=== PATIENT | female | born 1945 | race Caucasian/White ===

== ENCOUNTER 2020-01-20 20:17 | Inpatient (IN) ==
[2020-01-20] MEDS ORDERED: ZALEPLON 5 MG CAPSULE PO PRN (21:31)
[2020-01-20] MEDS ORDERED: diphenhydrAMINE CAP 25 MG CAPSULE PO PRN (21:31)
[2020-01-20] MEDS ORDERED: DEXTROSE 50% 25 GM/50 ML VIAL IV PRN (21:31)
[2020-01-20] MEDS ORDERED: guaiFENesin/DM ER 600-30 MG TABLET PO PRN (21:31)
[2020-01-20] MEDS ORDERED: GLUCAGON 1 MG VIAL IM PRN (21:31)
[2020-01-20] MEDS ORDERED: hydrALAZINE 20 MG/1 ML VIAL IV PRN (21:31)
[2020-01-20] MEDS ORDERED: NICOTINE 21 MG/24 HR PATCH TRANSDERM PRN (21:31)
[2020-01-20 21:32] LABS: Basophils % 0.2 % (0.0-0.8); Hematocrit 37.1 VOL% (35.7-47.0); Hemoglobin 11.9 GM/DL (12.0-16.0); Immature Granulocytes % 0.2 %; Immature Granulocytes Absolute 0.01 #; Lymphocytes # 1.8 10*3/uL (1.4-4.0); Lymphocytes % 42.7 % (21.3-54.2); Mean Corpuscular HGB Conc 32.1 GM/DL (32-36); Mean Corpuscular Volume 101.6 FL (87-102); Monocytes % 11.5 % (1.7-12.7); Neutrophils % 45.4 % (38.7-73.9); Platelet Count 145 T/CUMM (130-400); Red Blood Count 3.65 MC/CUMM (3.8-5.5); Red Cell Distribution Width 13.9 % (9.3-17.3); White Blood Count 4.2 T/CUMM (4-12)
[2020-01-20] MEDS ORDERED: AZITHROMYCIN INJ 500 MG in SODIUM CHLORIDE 0.9% 250 ML IV STA (21:53)
[2020-01-20 21:55] LABS: Alanine Aminotransferase 12 U/L (13-56); Albumin 2.8 G/DL (3.4-5.0); Alkaline Phosphatase 74 U/L (45-117); Aspartate Amino Transferase 41 U/L (0-37); Bilirubin,Total < 0.39 MG/DL (0.2-1.0); Blood Urea Nitrogen 12 MG/DL (7-18); Calcium 8.2 MG/DL (8.5-10.1); Estimated Glom Filtration Rate 62 ML/MIN; Glucose 101 MG/DL (74-106); Osmolality,Calculated 276.5 MOS/KG (273-304); Total Protein 6.3 G/DL (6.4-8.3)
[2020-01-20] MEDS: ONDANSETRON 4 MG/2 ML VIAL IV PRN (22:28)
[2020-01-20] MEDS ORDERED: NITROGLYCERIN SL 0.4 MG TABLET SL PRN (23:44)
[2020-01-20] MEDS ORDERED: GOLIMUMAB SUBCUT SCH (23:45)
[2020-01-20] MEDS ORDERED: INFLUENZA VIRUS VACCINE 0.5 ML SYRINGE IM ONE (23:55)
[2020-01-21 08:32] LABS: Alanine Aminotransferase 22 U/L (13-56); Albumin 2.5 G/DL (3.4-5.0); Alkaline Phosphatase 67 U/L (45-117); Aspartate Amino Transferase 40 U/L (0-37); Bilirubin,Total < 0.39 MG/DL (0.2-1.0); Blood Urea Nitrogen 12 MG/DL (7-18); Calcium 8.1 MG/DL (8.5-10.1); Estimated Glom Filtration Rate 62 ML/MIN; Glucose 85 MG/DL (74-106); Osmolality,Calculated 271.8 MOS/KG (273-304); Total Protein 6.2 G/DL (6.4-8.3)
[2020-01-21] MEDS ORDERED: CYANOCOBALAMIN 1000 MCG/1 ML VIAL IM SCH (09:00)
[2020-01-21] MEDS ORDERED: ZAFIRLUKAST 20 MG PO SCH (09:00)
[2020-01-21] MEDS: GABAPENTIN 600 MG TABLET PO SCH ×2 (09:12→20:29)
[2020-01-21] MEDS: BISACODYL 5 MG TABLET PO PRN (09:12)
[2020-01-21] MEDS: CARBIDOPA/LEVODOPA 25-100 MG TABLET PO SCH ×4 (09:13→20:29)
[2020-01-21] MEDS: AZITHROMYCIN 250 MG TABLET PO SCH (09:14)
[2020-01-21] MEDS: CHOLECALCIFEROL 1,000 UNIT TABLET PO SCH (09:14)
[2020-01-21] MEDS: DOCUSATE SODIUM 100 MG CAPSULE PO SCH ×2 (09:14→20:30)
[2020-01-21] MEDS: RALOXIFENE 60 MG TABLET PO SCH (09:14)
[2020-01-21] MEDS: POTASSIUM CHLORIDE 8 MEQ CAPSULE PO SCH ×3 (09:15→20:30)
[2020-01-21] MEDS: ASCORBIC ACID 500 MG TABLET PO SCH ×2 (09:15→20:31)
[2020-01-21] MEDS: POLYETHYLENE GLYCOL POWDER 17 GM PACK PO SCH ×3 (09:15→20:30)
[2020-01-21] MEDS: FLUTICASONE/SALMETEROL 500-50 DISKUS 14 DOSE INH SCH ×2 (09:16→20:54)
[2020-01-21] MEDS: ISOSORBIDE MONONITRATE 30 MG TABLET PO SCH (09:16)
[2020-01-21] MEDS: ENOXAPARIN 40 MG/0.4 ML SYRINGE SUBCUT SCH (09:16)
[2020-01-21] MEDS: ONDANSETRON 4 MG/2 ML VIAL IV PRN (09:32)
[2020-01-21] MEDS ORDERED: MAGNESIUM CITRATE 300 ML BOTTLE PO ONE (11:00)
[2020-01-21] MEDS ORDERED: MAGNESIUM SULF RIDER 2 GM in PREMIX 1 EACH IV ONE (12:00)
[2020-01-21] MEDS ORDERED: [UNRECOGNIZED DRUG - OTHER] SL PRN (13:19)
[2020-01-21] MEDS: ACETAMINOPHEN 325 MG TABLET PO PRN ×2 (15:37→20:34)
[2020-01-21] MEDS: ZAFIRLUKAST 20 MG PO SCH ×2 (15:39→20:31)
[2020-01-21] MEDS: LACTOBACILLUS RHAMNOSUS GG CAPSULE PO SCH (20:29)
[2020-01-21] MEDS: DULoxetine 30 MG CAPSULE PO SCH (20:30)
[2020-01-22 05:28] LABS: Alanine Aminotransferase 11 U/L (13-56); Albumin 2.5 G/DL (3.4-5.0); Alkaline Phosphatase 70 U/L (45-117); Aspartate Amino Transferase 46 U/L (0-37); Bilirubin,Total < 0.39 MG/DL (0.2-1.0); Blood Urea Nitrogen 13 MG/DL (7-18); Calcium 8.2 MG/DL (8.5-10.1); Ferritin 803.7 ng/ml (8-252); Glucose 92 MG/DL (74-106); Osmolality,Calculated 280.3 MOS/KG (273-304); Total Protein 6.3 G/DL (6.4-8.3)
[2020-01-22 06:24] LABS: Estimated Glom Filtration Rate 51 ML/MIN
[2020-01-22] MEDS: POTASSIUM CHLORIDE 8 MEQ CAPSULE PO SCH ×3 (08:21→19:59)
[2020-01-22] MEDS: BISACODYL 5 MG TABLET PO PRN (08:22)
[2020-01-22] MEDS: DOCUSATE SODIUM 100 MG CAPSULE PO SCH ×2 (08:22→19:59)
[2020-01-22] MEDS: AZITHROMYCIN 250 MG TABLET PO SCH (08:22)
[2020-01-22] MEDS: RALOXIFENE 60 MG TABLET PO SCH (08:22)
[2020-01-22] MEDS: ASCORBIC ACID 500 MG TABLET PO SCH ×2 (08:23→19:59)
[2020-01-22] MEDS: GABAPENTIN 600 MG TABLET PO SCH ×2 (08:23→19:59)
[2020-01-22] MEDS: LACTOBACILLUS RHAMNOSUS GG CAPSULE PO SCH ×2 (08:23→19:59)
[2020-01-22] MEDS: ISOSORBIDE MONONITRATE 30 MG TABLET PO SCH (08:23)
[2020-01-22] MEDS: ENOXAPARIN 40 MG/0.4 ML SYRINGE SUBCUT SCH (08:24)
[2020-01-22] MEDS: POLYETHYLENE GLYCOL POWDER 17 GM PACK PO SCH ×2 (08:24→20:00)
[2020-01-22] MEDS: FLUTICASONE/SALMETEROL 500-50 DISKUS 14 DOSE INH SCH ×2 (08:24→20:30)
[2020-01-22] MEDS: CARBIDOPA/LEVODOPA 25-100 MG TABLET PO SCH ×4 (08:25→19:59)
[2020-01-22] MEDS: ZAFIRLUKAST 20 MG PO SCH ×2 (08:26→19:59)
[2020-01-22] MEDS ORDERED: guaiFENesin 200 MG/10 ML UDCUP PO PRN (08:35)
[2020-01-22] MEDS: CHOLECALCIFEROL 1,000 UNIT TABLET PO SCH (11:14)
[2020-01-22] MEDS: ACETAMINOPHEN 325 MG TABLET PO PRN (11:18)
[2020-01-22] MEDS: CHOLECALCIFEROL 5,000 UNIT TABLET PO SCH (11:19)
[2020-01-22] MEDS: DULoxetine 30 MG CAPSULE PO SCH (19:59)
[2020-01-23 05:28] LABS: Alanine Aminotransferase 13 U/L (13-56); Albumin 2.5 G/DL (3.4-5.0); Alkaline Phosphatase 63 U/L (45-117); Aspartate Amino Transferase 53 U/L (0-37); Bilirubin,Total < 0.39 MG/DL (0.2-1.0); Blood Urea Nitrogen 14 MG/DL (7-18); Calcium 8.4 MG/DL (8.5-10.1); Estimated Glom Filtration Rate 51 ML/MIN; Ferritin 1036.9 ng/ml (8-252); Glucose 115 MG/DL (74-106); Osmolality,Calculated 274.8 MOS/KG (273-304); Total Protein 6.2 G/DL (6.4-8.3)
[2020-01-23] MEDS: ENOXAPARIN 40 MG/0.4 ML SYRINGE SUBCUT SCH (08:08)
[2020-01-23] MEDS: POLYETHYLENE GLYCOL POWDER 17 GM PACK PO SCH ×2 (08:08→23:25)
[2020-01-23] MEDS: GABAPENTIN 600 MG TABLET PO SCH ×2 (08:09→23:25)
[2020-01-23] MEDS: POTASSIUM CHLORIDE 8 MEQ CAPSULE PO SCH (08:09)
[2020-01-23] MEDS: AZITHROMYCIN 250 MG TABLET PO SCH (08:09)
[2020-01-23] MEDS: POTASSIUM CHLORIDE 20 MEQ TABLET PO PRN ×3 (08:09→13:21)
[2020-01-23] MEDS: ASCORBIC ACID 500 MG TABLET PO SCH ×2 (08:10→23:25)
[2020-01-23] MEDS: CARBIDOPA/LEVODOPA 25-100 MG TABLET PO SCH ×4 (08:10→23:25)
[2020-01-23] MEDS: RALOXIFENE 60 MG TABLET PO SCH (08:10)
[2020-01-23] MEDS: CHOLECALCIFEROL 5,000 UNIT TABLET PO SCH (08:10)
[2020-01-23] MEDS: DOCUSATE SODIUM 100 MG CAPSULE PO SCH ×2 (08:10→23:25)
[2020-01-23] MEDS: ISOSORBIDE MONONITRATE 30 MG TABLET PO SCH (08:10)
[2020-01-23] MEDS: FLUTICASONE/SALMETEROL 500-50 DISKUS 14 DOSE INH SCH ×2 (08:10→23:25)
[2020-01-23] MEDS: LACTOBACILLUS RHAMNOSUS GG CAPSULE PO SCH ×2 (08:10→23:25)
[2020-01-23] MEDS: ZAFIRLUKAST 20 MG PO SCH (08:11)
[2020-01-23] MEDS ORDERED: ALBUTEROL 2.5 MG/3 ML NEB RESP TX PRN (11:11)
[2020-01-23] MEDS: ZINC GLUCONATE 50 MG TABLET PO SCH (11:50)
[2020-01-23] MEDS: DULoxetine 30 MG CAPSULE PO SCH (23:25)
[2020-01-24] MEDS: ZAFIRLUKAST 20 MG PO SCH ×3 (02:02→23:01)
[2020-01-24] MEDS: MIRABEGRON 50 MG PO SCH ×2 (02:02→23:00)
[2020-01-24 05:20] LABS: Basophils % 0.3 % (0.0-0.8); Hematocrit 35.9 VOL% (35.7-47.0); Hemoglobin 11.3 GM/DL (12.0-16.0); Immature Granulocytes % 0.5 %; Immature Granulocytes Absolute 0.02 #; Lymphocytes # 2.1 10*3/uL (1.4-4.0); Lymphocytes % 53.7 % (21.3-54.2); Mean Corpuscular HGB Conc 31.5 GM/DL (32-36); Mean Corpuscular Volume 102.9 FL (87-102); Mean Platelet Volume 11.4 FL (9.6-12.0); Monocytes % 12.1 % (1.7-12.7); Neutrophils % 33.4 % (38.7-73.9); Platelet Count 162 T/CUMM (130-400); Red Blood Count 3.49 MC/CUMM (3.8-5.5)
[2020-01-24 05:45] LABS: Band Neutrophils 3 % (0-10); Eosinophils 1 % (0-10); Hypochromasia 1+; Lymphocytes 51 % (20-55); Platelet Estimate Adequate; Segmented Neutrophils 31 % (50-85); Total Cells Counted 100
[2020-01-24 05:46] LABS: Atypical Lymphocytes Few
[2020-01-24 05:52] LABS: Albumin 2.5 G/DL (3.4-5.0); Bilirubin,Total 0.5 MG/DL (0.2-1.0); Calcium 8.2 MG/DL (8.5-10.1); Ferritin 1155.3 ng/ml (8-252); Osmolality,Calculated 281.3 MOS/KG (273-304); Total Protein 5.9 G/DL (6.4-8.3)
[2020-01-24] MEDS: GABAPENTIN 600 MG TABLET PO SCH ×2 (09:44→22:25)
[2020-01-24] MEDS: CHOLECALCIFEROL 5,000 UNIT TABLET PO SCH (09:45)
[2020-01-24] MEDS: CARBIDOPA/LEVODOPA 25-100 MG TABLET PO SCH ×4 (09:45→22:25)
[2020-01-24] MEDS: AZITHROMYCIN 250 MG TABLET PO SCH (09:45)
[2020-01-24] MEDS: DOCUSATE SODIUM 100 MG CAPSULE PO SCH ×3 (09:45→22:25)
[2020-01-24] MEDS: ISOSORBIDE MONONITRATE 30 MG TABLET PO SCH (09:45)
[2020-01-24] MEDS: ZINC GLUCONATE 50 MG TABLET PO SCH (09:45)
[2020-01-24] MEDS: ENOXAPARIN 40 MG/0.4 ML SYRINGE SUBCUT SCH (09:46)
[2020-01-24] MEDS: FLUTICASONE/SALMETEROL 500-50 DISKUS 14 DOSE INH SCH ×2 (09:47→22:25)
[2020-01-24] MEDS: LACTOBACILLUS RHAMNOSUS GG CAPSULE PO SCH ×2 (09:47→22:25)
[2020-01-24] MEDS: POLYETHYLENE GLYCOL POWDER 17 GM PACK PO SCH ×3 (09:47→23:00)
[2020-01-24] MEDS: ASCORBIC ACID 500 MG TABLET PO SCH ×2 (10:00→22:25)
[2020-01-24] MEDS: DEXAMETHASONE 4 MG TABLET PO SCH (12:01)
[2020-01-24] MEDS: ACETAMINOPHEN 325 MG TABLET PO PRN (12:01)
[2020-01-24 14:51] LABS: Bilirubin,Urine Negative (Negative); Blood, Urine Negative (Negative); Glucose,Urine (UA) Negative (Negative); Ketones,Urine 5 mg/dL (Negative); Nitrite,Urine Negative (Negative); Protein,Urine 30 MG/DL; RBC,Urine 17 /HPF (0-4); Squamous Epithelial Cell,Urine Occasional /HPF (0-10); Urine Appearance CLEAR (Clear); Urine Color Amber (Yellow); Urine Specific Gravity 1.023 (1.001-1.035); Urine Urobilinogen < 2.0 EU/DL (0.2-1.0); WBC,Urine 3 /HPF (0-6)
[2020-01-24] MEDS: DULoxetine 30 MG CAPSULE PO SCH (22:25)
[2020-01-25 06:10] LABS: Albumin 2.4 G/DL (3.4-5.0); Bilirubin,Total 0.4 MG/DL (0.2-1.0); Osmolality,Calculated 278.5 MOS/KG (273-304); Total Protein 6.5 G/DL (6.4-8.3)
[2020-01-25] MEDS: FLUTICASONE/SALMETEROL 500-50 DISKUS 14 DOSE INH SCH (09:33)
[2020-01-25] MEDS: LACTOBACILLUS RHAMNOSUS GG CAPSULE PO SCH (09:34)
[2020-01-25] MEDS: DOCUSATE SODIUM 100 MG CAPSULE PO SCH (09:34)
[2020-01-25] MEDS: GABAPENTIN 600 MG TABLET PO SCH (09:34)
[2020-01-25] MEDS: CARBIDOPA/LEVODOPA 25-100 MG TABLET PO SCH ×2 (09:34→13:14)
[2020-01-25] MEDS: ISOSORBIDE MONONITRATE 30 MG TABLET PO SCH (09:34)
[2020-01-25] MEDS: CHOLECALCIFEROL 5,000 UNIT TABLET PO SCH (09:34)
[2020-01-25] MEDS: ASCORBIC ACID 500 MG TABLET PO SCH (09:34)
[2020-01-25] MEDS: ZINC GLUCONATE 50 MG TABLET PO SCH (09:34)
[2020-01-25] MEDS: ENOXAPARIN 40 MG/0.4 ML SYRINGE SUBCUT SCH (09:34)
[2020-01-25] MEDS: ZAFIRLUKAST 20 MG PO SCH (09:35)
[2020-01-25] MEDS: DEXAMETHASONE 4 MG TABLET PO SCH (09:37)
[2020-01-25] MEDS: POLYETHYLENE GLYCOL POWDER 17 GM PACK PO SCH (09:39)
[2020-01-25] MEDS ORDERED: ALBUTEROL INHALER 18 GM INH PRN (10:26)
[2020-01-25 11:19] VITALS: BP 131/46
== END 2020-01-25 13:58 | disposition home health service (06) | DRG 177 ==
LOC: EDUNIT# → N.ED 20:17 → SUATTDRO 21:31 → N.EDINP 21:31 → N.2E 22:02
PROVIDERS: ADMIT Hospitalist; ATTEND Family Medicine

== ENCOUNTER 2020-01-29 10:37 | Inpatient (IN) ==
[2020-01-29] MEDS ORDERED: SODIUM CHLORIDE 0.9% 1,000 ML IV STA (10:57)
[2020-01-29 11:18] LABS: ABG Base Excess -5.6 MMOL/L (-2.5-2.5); ABG HCO3 19.8 MMOL/L (20-26); ABG PCO2 44.2 MM HG (35-48); ABG PH 7.284 (7.35-7.45); ABG PO2 97.5 MM HG (80-95); ABG TCO2 19.2 MMOL/L (23-27)
[2020-01-29 11:34] LABS: Basophils % 0.3 % (0.0-0.8); Eosinophils # 0.2 10*3/uL (0.0-0.87); Eosinophils % 1.9 % (0.00-10.9); Hematocrit 34.7 VOL% (35.7-47.0); Hemoglobin 10.8 GM/DL (12.0-16.0); Immature Granulocytes % 1.8 %; Lymphocytes # 1.3 10*3/uL (1.4-4.0); Lymphocytes % 12.4 % (21.3-54.2); Mean Corpuscular HGB Conc 31.1 GM/DL (32-36); Mean Corpuscular Volume 104.8 FL (87-102); Mean Platelet Volume 10.9 FL (9.6-12.0); Monocytes % 5.2 % (1.7-12.7); Neutrophils % 78.4 % (38.7-73.9); Platelet Count 385 T/CUMM (130-400); Red Blood Count 3.31 MC/CUMM (3.8-5.5); Red Cell Distribution Width 14.3 % (9.3-17.3); White Blood Count 10.9 T/CUMM (4-12)
[2020-01-29 11:42] LABS: Albumin 2.3 G/DL (3.4-5.0); Bilirubin,Total 0.5 MG/DL (0.2-1.0); Calcium 8.7 MG/DL (8.5-10.1); Osmolality,Calculated 291.4 MOS/KG (273-304); Total Protein 6.5 G/DL (6.4-8.3)
[2020-01-29 11:56] LABS: Bacteria,Urine Many /HPF (Few); Bilirubin,Urine Negative (Negative); Blood, Urine Negative (Negative); Glucose,Urine (UA) Negative (Negative); Hyaline Casts,Urine 101 /LPF (0-3); Ketones,Urine 5 mg/dL (Negative); Mucus,Urine Occasional /LPF (Occasional); Nitrite,Urine Negative (Negative); Protein,Urine Negative; Squamous Epithelial Cell,Urine Occasional /HPF (0-10); Urine Appearance Slightly Hazy (Clear); Urine Color Amber (Yellow); Urine Specific Gravity 1.024 (1.001-1.035); Urine Urobilinogen < 2.0 EU/DL (0.2-1.0); WBC,Urine 2 /HPF (0-6)
[2020-01-29] MEDS ORDERED: ALBUTEROL/IPRATROPIUM 3 ML NEB RESP TX STA (12:31)
[2020-01-29] MEDS ORDERED: hydrALAZINE 20 MG/1 ML VIAL IV PRN (14:53)
[2020-01-29] MEDS ORDERED: ONDANSETRON 4 MG/2 ML VIAL IV PRN (14:53)
[2020-01-29] MEDS ORDERED: guaiFENesin/DM ER 600-30 MG TABLET PO PRN (14:53)
[2020-01-29] MEDS ORDERED: LACTULOSE 20 GM/30 ML UDCUP PO PRN (14:53)
[2020-01-29] MEDS ORDERED: DEXTROSE 50% 25 GM/50 ML VIAL IV PRN (14:53)
[2020-01-29] MEDS ORDERED: DOCUSATE SODIUM 100 MG CAPSULE PO PRN (14:53)
[2020-01-29] MEDS ORDERED: GLUCAGON 1 MG VIAL IM PRN (14:53)
[2020-01-29 14:57] LABS: Ferritin 1155.2 ng/ml (8-252)
[2020-01-29] MEDS: SODIUM CHLORIDE 0.9% 1,000 ML IV SCH (18:05)
[2020-01-29] MEDS: ENOXAPARIN 40 MG/0.4 ML SYRINGE SUBCUT SCH (18:05)
[2020-01-30] MEDS: SODIUM CHLORIDE 0.9% 1,000 ML IV SCH ×4 (00:08→15:39)
[2020-01-30 04:11] LABS: Basophils % 0.2 % (0.0-0.8); Eosinophils # 0.4 10*3/uL (0.0-0.87); Eosinophils % 2.9 % (0.00-10.9); Hemoglobin 9.7 GM/DL (12.0-16.0); Immature Granulocytes % 1.1 %; Immature Granulocytes Absolute 0.13 #; Lymphocytes # 1.2 10*3/uL (1.4-4.0); Mean Corpuscular HGB Conc 31.3 GM/DL (32-36); Mean Corpuscular Volume 103.7 FL (87-102); Mean Platelet Volume 10.8 FL (9.6-12.0); Monocytes % 4.1 % (1.7-12.7); Neutrophils % 81.7 % (38.7-73.9); Platelet Count 381 T/CUMM (130-400); Red Blood Count 2.99 MC/CUMM (3.8-5.5); Red Cell Distribution Width 14.4 % (9.3-17.3); White Blood Count 11.9 T/CUMM (4-12)
[2020-01-30 04:49] LABS: Ferritin 952.6 ng/ml (8-252)
[2020-01-30 05:04] LABS: Calcium 8.4 MG/DL (8.5-10.1)
[2020-01-30 05:14] LABS: Thyroid Stimulating Hormone 0.394 uIU/ml (0.358-3.74)
[2020-01-30 07:58] LABS: ABG Base Excess -5.6 MMOL/L (-2.5-2.5); ABG HCO3 19.8 MMOL/L (20-26); ABG Oxygen Saturation 95.8 % (95-100); ABG PCO2 42.4 MM HG (35-48); ABG PH 7.296 (7.35-7.45); ABG PO2 80.8 MM HG (80-95); ABG TCO2 19.2 MMOL/L (23-27)
[2020-01-30] MEDS: ACETAMINOPHEN 325 MG TABLET PO PRN ×2 (09:28→21:55)
[2020-01-30] MEDS: PANTOPRAZOLE 40 MG TABLET PO SCH ×2 (09:28→10:03)
[2020-01-30] MEDS ORDERED: LORazepam 2 MG/1 ML VIAL IV ONE (10:13)
[2020-01-30] MEDS: ENOXAPARIN 40 MG/0.4 ML SYRINGE SUBCUT SCH (16:25)
[2020-01-30] MEDS ORDERED: MORPHINE 4 MG/1 ML VIAL IV ONE (23:15)
[2020-01-31] MEDS: LIDOCAINE 5% PATCH TRANSDERM SCH ×2 (00:26→08:46)
[2020-01-31] MEDS ORDERED: DEXAMETHASONE 10 MG/1 ML VIAL IV SCH ×2 (05:00→09:00)
[2020-01-31] MEDS ORDERED: MORPHINE 4 MG/1 ML VIAL IV STA (05:20)
[2020-01-31 05:25] LABS: ABG Base Excess -12.6 MMOL/L (-2.5-2.5); ABG HCO3 14.5 MMOL/L (20-26); ABG Oxygen Saturation 84.7 % (95-100); ABG PCO2 34.1 MM HG (35-48); ABG PH 7.229 (7.35-7.45); ABG PO2 57.9 MM HG (80-95); ABG TCO2 13.1 MMOL/L (23-27)
[2020-01-31] MEDS ORDERED: HYDROmorphone 2 MG/1 ML VIAL IV ONE (06:01)
[2020-01-31] MEDS ORDERED: SODIUM CHLORIDE 0.9% 250 ML IV ONE (06:02)
[2020-01-31 06:26] LABS: ABG Base Excess -9.9 MMOL/L (-2.5-2.5); ABG HCO3 16.6 MMOL/L (20-26); ABG Oxygen Saturation 97.7 % (95-100); ABG PH 7.314 (7.35-7.45); ABG TCO2 13.8 MMOL/L (23-27)
[2020-01-31 07:04] LABS: Ferritin 1704.3 ng/ml (8-252)
[2020-01-31] MEDS: ZINC SULFATE 220 MG CAPSULE PO SCH (08:51)
[2020-01-31] MEDS: ASCORBIC ACID 500 MG TABLET PO SCH (08:51)
[2020-01-31] MEDS: CHOLECALCIFEROL 1,000 UNIT TABLET PO SCH (08:51)
[2020-01-31] MEDS: PANTOPRAZOLE 40 MG TABLET PO SCH (08:51)
[2020-01-31] MEDS: CETIRIZINE 10 MG TABLET PO SCH (08:51)
[2020-01-31] MEDS ORDERED: ETOMIDATE 20 MG/10 ML VIAL IV ONE ×3 (09:13→09:28)
[2020-01-31] MEDS ORDERED: SUCCINYLCHOLINE 200 MG/10 ML VIAL ONE (09:14)
[2020-01-31] MEDS ORDERED: SUCCINYLCHOLINE 200 MG/10 ML VIAL IV ONE (09:27)
[2020-01-31] MEDS ORDERED: NOREPINEPHRINE 4 MG/4 ML VIAL IV ONE (09:32)
[2020-01-31] MEDS ORDERED: NOREPINEPHRINE 4 MG in SODIUM CHLORIDE 0.9% 242 ML IV PRN (09:36)
[2020-01-31] MEDS: NOREPINEPHRINE 8 MG in SODIUM CHLORIDE 0.9% 242 ML IV PRN ×2 (09:36→14:58)
[2020-01-31] MEDS: MIDAZOLAM 100 MG in SODIUM CHLORIDE 0.9% 80 ML IV PRN (10:20)
[2020-01-31] MEDS ORDERED: DIGOXIN 0.5 MG/2 ML AMP IV ONE ×3 (10:53→12:36)
[2020-01-31 11:11] LABS: Basophils # 0.1 10*3/uL (0.0-0.2); Basophils % 0.4 % (0.0-0.8); Immature Granulocytes % 4.7 %; Immature Granulocytes Absolute 1.09 #; Lymphocytes # 1.2 10*3/uL (1.4-4.0); Lymphocytes % 5.3 % (21.3-54.2); Mean Corpuscular HGB Conc 30.2 GM/DL (32-36); Mean Corpuscular Volume 105.9 FL (87-102); Mean Platelet Volume 10.6 FL (9.6-12.0); Monocytes % 3.2 % (1.7-12.7); NRBC # 0.05 10*3/uL; Neutrophils % 86.4 % (38.7-73.9); Platelet Count 457 T/CUMM (130-400); Red Blood Count 3.87 MC/CUMM (3.8-5.5); Red Cell Distribution Width 14.9 % (9.3-17.3)
[2020-01-31] MEDS: fentaNYL INJ 1,250 MCG in SODIUM CHLORIDE 0.9% 225 ML IV PRN ×2 (11:42→23:30)
[2020-01-31 11:45] LABS: Hemoglobin 12.4 GM/DL (12.0-16.0)
[2020-01-31] MEDS: SODIUM CHLORIDE 0.9% 1,000 ML IV SCH ×2 (11:45→15:04)
[2020-01-31 11:47] LABS: Calcium 9.4 MG/DL (8.5-10.1); Osmolality,Calculated 305.1 MOS/KG (273-304)
[2020-01-31 11:47] LABS: CKMB % 13.4 %
[2020-01-31 11:49] LABS: Troponin I 13.6 NG/ML (0.00-0.045)
[2020-01-31 11:53] LABS: ABG Base Excess -14.5 MMOL/L (-2.5-2.5); ABG HCO3 13.2 MMOL/L (20-26); ABG Oxygen Saturation 82.7 % (95-100); ABG PCO2 50.1 MM HG (35-48); ABG PO2 62.3 MM HG (80-95); ABG TCO2 14.6 MMOL/L (23-27)
[2020-01-31] MEDS ORDERED: SODIUM BICARBONATE 50 MEQ/50 ML VIAL IV ONE ×2 (11:54→11:55)
[2020-01-31 11:55] LABS: ABG PH 7.099 (7.35-7.45)
[2020-01-31 12:00] LABS: Anisocytosis 1+; Band Neutrophils 10 % (0-10); Lymphocytes 6 % (20-55); Metamyelocytes 1 %; Nucleated Red Blood Cells 1 (0-5); Platelet Estimate Normal; Segmented Neutrophils 82 % (50-85); Smudge Cells Few; Total Cells Counted 100
[2020-01-31 12:01] LABS: Macrocytosis 1+
[2020-01-31] MEDS: ACETAMINOPHEN 325 MG TABLET PO PRN ×2 (14:09→22:47)
[2020-01-31] MEDS: LEVOFLOXACIN INJ 250 MG in PREMIX 1 EACH IV SCH ×3 (14:15→22:47)
[2020-01-31] MEDS ORDERED: SODIUM POLYSTYRENE SULFATE 15 GM/60 ML BOTTLE PO STA (15:13)
[2020-01-31 15:15] LABS: CKMB % 8.1 %
[2020-01-31 15:24] LABS: Troponin I 18.4 NG/ML (0.00-0.045)
[2020-01-31] MEDS ORDERED: IBUPROFEN 600 MG TABLET PO PRN (15:56)
[2020-01-31] MEDS: ENOXAPARIN 40 MG/0.4 ML SYRINGE SUBCUT SCH (16:58)
[2020-01-31 17:58] LABS: Troponin I 29.2 NG/ML (0.00-0.045)
[2020-01-31] MEDS ORDERED: ALTEPLASE IV ONE ×3 (18:33)
[2020-01-31] MEDS ORDERED: CLOPIDOGREL 300 MG TABLET PO ONE (18:35)
[2020-02-01] MEDS: DEXAMETHASONE 10 MG/1 ML VIAL IV SCH (01:26)
[2020-02-01] MEDS: fentaNYL INJ 1,250 MCG in SODIUM CHLORIDE 0.9% 225 ML IV PRN (04:20)
[2020-02-01 05:01] LABS: Basophils % 0.2 % (0.0-0.8); Hematocrit 32.7 VOL% (35.7-47.0); Immature Granulocytes % 2.3 %; Immature Granulocytes Absolute 0.34 #; Lymphocytes # 0.7 10*3/uL (1.4-4.0); Lymphocytes % 4.9 % (21.3-54.2); Mean Corpuscular HGB Conc 30.6 GM/DL (32-36); Mean Corpuscular Volume 104.1 FL (87-102); Mean Platelet Volume 11.1 FL (9.6-12.0); Monocytes % 3.5 % (1.7-12.7); NRBC # 0.26 10*3/uL; Neutrophils % 89.1 % (38.7-73.9); Red Blood Count 3.14 MC/CUMM (3.8-5.5); Red Cell Distribution Width 15.1 % (9.3-17.3)
[2020-02-01 05:02] LABS: Platelet Count 215 T/CUMM (130-400); White Blood Count 14.7 T/CUMM (4-12)
[2020-02-01 05:03] LABS: Calcium 8.1 MG/DL (8.5-10.1); Osmolality,Calculated 321.9 MOS/KG (273-304)
[2020-02-01 05:15] LABS: Band Neutrophils 3 % (0-10); Hypochromasia 1+; Lymphocytes 5 % (20-55); Nucleated Red Blood Cells 2 (0-5); Platelet Estimate Adequate; Segmented Neutrophils 90 % (50-85); Total Cells Counted 100
[2020-02-01 07:52] LABS: Ferritin 64198.6 ng/ml (8-252)
[2020-02-01] MEDS: LIDOCAINE 5% PATCH TRANSDERM SCH ×2 (08:23→08:48)
[2020-02-01] MEDS: ASCORBIC ACID 500 MG TABLET PO SCH ×2 (08:24→20:53)
[2020-02-01] MEDS: CHOLECALCIFEROL 1,000 UNIT TABLET PO SCH (08:24)
[2020-02-01] MEDS: PANTOPRAZOLE 40 MG VIAL IV SCH (08:24)
[2020-02-01] MEDS: CETIRIZINE 10 MG TABLET PO SCH (08:24)
[2020-02-01] MEDS: SODIUM BICARB INJ 100 MEQ in DEXTROSE 5% 1,000 ML IV SCH (09:50)
[2020-02-01] MEDS: ALBUMIN 25% 12.5 GM in PREMIX 1 EACH IV SCH ×2 (09:50→18:31)
[2020-02-01 16:28] LABS: Calcium 8.3 MG/DL (8.5-10.1); Osmolality,Calculated 321.3 MOS/KG (273-304)
[2020-02-01] MEDS: ENOXAPARIN 100 MG/ML SYRINGE SUBCUT SCH (18:56)
[2020-02-01] MEDS: LEVOFLOXACIN INJ 250 MG in PREMIX 1 EACH IV SCH (20:52)
[2020-02-01] MEDS: ATORVASTATIN 40 MG TABLET NG SCH (20:53)
[2020-02-02] MEDS: DEXAMETHASONE 10 MG/1 ML VIAL IV SCH ×2 (00:02→23:28)
[2020-02-02] MEDS: ALBUMIN 25% 12.5 GM in PREMIX 1 EACH IV SCH ×2 (00:09→09:24)
[2020-02-02 04:26] LABS: Basophils # 0.1 10*3/uL (0.0-0.2); Basophils % 0.3 % (0.0-0.8); Eosinophils % 0.1 % (0.00-10.9); Hematocrit 29.9 VOL% (35.7-47.0); Hemoglobin 9.4 GM/DL (12.0-16.0); Immature Granulocytes Absolute 0.88 #; Lymphocytes # 1.1 10*3/uL (1.4-4.0); Lymphocytes % 6.2 % (21.3-54.2); Mean Corpuscular HGB Conc 31.4 GM/DL (32-36); Mean Corpuscular Volume 103.1 FL (87-102); Mean Platelet Volume 11.1 FL (9.6-12.0); Monocytes % 3.8 % (1.7-12.7); NRBC # 0.41 10*3/uL; Neutrophils % 84.6 % (38.7-73.9); Platelet Count 175 T/CUMM (130-400); Red Cell Distribution Width 14.9 % (9.3-17.3); White Blood Count 17.5 T/CUMM (4-12)
[2020-02-02 04:34] LABS: Allen Test Positive; Pt O2 Delivery Device Ventilator
[2020-02-02 04:38] LABS: ABG Base Excess -3.3 MMOL/L (-2.5-2.5); ABG HCO3 21.7 MMOL/L (20-26); ABG Oxygen Saturation 99.8 % (95-100); ABG PCO2 36.3 MM HG (35-48); ABG PH 7.377 (7.35-7.45); ABG TCO2 19.4 MMOL/L (23-27)
[2020-02-02 05:05] LABS: Band Neutrophils 4 % (0-10); Hypochromasia 1+; Lymphocytes 5 % (20-55); Macrocytosis Slight; Nucleated Red Blood Cells 3 (0-5); Platelet Estimate Adequate; Segmented Neutrophils 90 % (50-85); Total Cells Counted 100
[2020-02-02 05:07] LABS: Calcium 8.1 MG/DL (8.5-10.1); Osmolality,Calculated 325.4 MOS/KG (273-304)
[2020-02-02] MEDS: ENOXAPARIN 100 MG/ML SYRINGE SUBCUT SCH ×2 (06:00→18:00)
[2020-02-02] MEDS: CETIRIZINE 10 MG TABLET PO SCH (09:23)
[2020-02-02] MEDS: ASCORBIC ACID 500 MG TABLET PO SCH ×2 (09:23→20:14)
[2020-02-02] MEDS: PANTOPRAZOLE 40 MG VIAL IV SCH (09:23)
[2020-02-02] MEDS: CHOLECALCIFEROL 1,000 UNIT TABLET PO SCH (09:23)
[2020-02-02] MEDS: ZINC SULFATE 220 MG CAPSULE PO SCH (09:23)
[2020-02-02] MEDS: LIDOCAINE 5% PATCH TRANSDERM SCH (10:01)
[2020-02-02 11:39] LABS: Bilirubin,Direct 0.2 MG/DL (0.0-0.20); Bilirubin,Indirect 0.3 MG/DL (0.0-1.0); Bilirubin,Total 0.5 MG/DL (0.2-1.0); Total Protein 5.8 G/DL (6.4-8.3)
[2020-02-02] MEDS: SODIUM BICARB INJ 100 MEQ in DEXTROSE 5% 1,000 ML IV SCH ×2 (14:32)
[2020-02-02] MEDS: ATORVASTATIN 40 MG TABLET NG SCH (20:14)
[2020-02-03 04:04] LABS: Basophils # 0.1 10*3/uL (0.0-0.2); Basophils % 0.2 % (0.0-0.8); Hematocrit 30.1 VOL% (35.7-47.0); Hemoglobin 9.5 GM/DL (12.0-16.0); Immature Granulocytes % 5.8 %; Immature Granulocytes Absolute 1.24 #; Lymphocytes # 1.2 10*3/uL (1.4-4.0); Lymphocytes % 5.6 % (21.3-54.2); Mean Corpuscular HGB Conc 31.6 GM/DL (32-36); Mean Corpuscular Volume 101.3 FL (87-102); Mean Platelet Volume 11.6 FL (9.6-12.0); Monocytes % 2.7 % (1.7-12.7); NRBC # 0.29 10*3/uL; Neutrophils % 85.7 % (38.7-73.9); Platelet Count 175 T/CUMM (130-400); Red Blood Count 2.97 MC/CUMM (3.8-5.5); Red Cell Distribution Width 14.7 % (9.3-17.3); White Blood Count 21.4 T/CUMM (4-12)
[2020-02-03 04:20] LABS: Albumin 2.1 G/DL (3.4-5.0); Bilirubin,Total 0.5 MG/DL (0.2-1.0); Calcium 7.8 MG/DL (8.5-10.1); Osmolality,Calculated 328.8 MOS/KG (273-304); Total Protein 5.6 G/DL (6.4-8.3)
[2020-02-03 04:38] LABS: Band Neutrophils 4 % (0-10); Hypochromasia 1+; Lymphocytes 3 % (20-55); Nucleated Red Blood Cells 1 (0-5); Segmented Neutrophils 89 % (50-85); Total Cells Counted 100
[2020-02-03 04:39] LABS: Macrocytosis Slight; Platelet Estimate Adequate
[2020-02-03 04:50] LABS: ABG Base Excess 0.5 MMOL/L (-2.5-2.5); ABG HCO3 24.8 MMOL/L (20-26); ABG PCO2 43.2 MM HG (35-48); ABG PH 7.383 (7.35-7.45); Allen Test Positive; Pt O2 Delivery Device Ventilator
[2020-02-03] MEDS: SODIUM BICARB INJ 100 MEQ in DEXTROSE 5% 1,000 ML IV SCH (05:40)
[2020-02-03] MEDS: ENOXAPARIN 100 MG/ML SYRINGE SUBCUT SCH (06:15)
[2020-02-03] MEDS: PANTOPRAZOLE 40 MG VIAL IV SCH (09:41)
[2020-02-03] MEDS: LIDOCAINE 5% PATCH TRANSDERM SCH (09:41)
[2020-02-03] MEDS: CETIRIZINE 10 MG TABLET PO SCH (09:42)
[2020-02-03] MEDS: CHOLECALCIFEROL 1,000 UNIT TABLET PO SCH (09:42)
[2020-02-03] MEDS: ASCORBIC ACID 500 MG TABLET PO SCH ×2 (09:42→20:03)
[2020-02-03] MEDS ORDERED: METOPROLOL TARTRATE 25 MG TABLET ONE (10:46)
[2020-02-03] MEDS: METOPROLOL TARTRATE 25 MG TABLET NG SCH ×2 (11:48→20:03)
[2020-02-03] MEDS: INSULIN REGULAR 100 UNIT/ML SUBCUT SCH ×2 (11:48→18:04)
[2020-02-03] MEDS: MEROPENEM 500 MG in SODIUM CHLORIDE 0.9% 100 ML IV SCH (12:40)
[2020-02-03] MEDS: LINEZOLID INJ 600 MG in PREMIX 1 EACH IV SCH (13:40)
[2020-02-03] MEDS: hydrALAZINE 20 MG/1 ML VIAL IV PRN ×2 (14:25→23:44)
[2020-02-03 15:16] LABS: Hepatitis B Core IgM Quant 0.06 Index; Hepatitis B Surface Ag Quant < 0.10 Index; Hepatitis B Surface Ag Result Negative (Negative); Hepatitis C Virus Ab Quant 0.03 Index; Hepatitis C Virus Ab Result Negative (Negative)
[2020-02-03] MEDS: MIDAZOLAM 100 MG in SODIUM CHLORIDE 0.9% 80 ML IV PRN (21:39)
[2020-02-03 23:27] LABS: Allen Test Positive; Pt O2 Delivery Device Ventilator
[2020-02-03 23:28] LABS: ABG Base Excess -0.4 MMOL/L (-2.5-2.5); ABG PCO2 42.8 MM HG (35-48); ABG PH 7.374 (7.35-7.45); ABG PO2 68.6 MM HG (80-95); ABG TCO2 22.3 MMOL/L (23-27)
[2020-02-03] MEDS: DEXAMETHASONE 10 MG/1 ML VIAL IV SCH (23:43)
[2020-02-04] MEDS: INSULIN REGULAR 100 UNIT/ML SUBCUT SCH ×4 (00:01→17:26)
[2020-02-04] MEDS: LINEZOLID INJ 600 MG in PREMIX 1 EACH IV SCH ×2 (01:22→13:24)
[2020-02-04] MEDS: NOREPINEPHRINE 8 MG in SODIUM CHLORIDE 0.9% 242 ML IV PRN (02:26)
[2020-02-04 03:11] LABS: ABG Base Excess -5.3 MMOL/L (-2.5-2.5); ABG HCO3 20.1 MMOL/L (20-26); ABG Oxygen Saturation 99.2 % (95-100); ABG PCO2 38.3 MM HG (35-48); ABG TCO2 18.3 MMOL/L (23-27); Allen Test Positive; Pt O2 Delivery Device Ventilator
[2020-02-04 04:41] LABS: Basophils # 0.1 10*3/uL (0.0-0.2); Basophils % 0.1 % (0.0-0.8); Hematocrit 34.1 VOL% (35.7-47.0); Hemoglobin 10.8 GM/DL (12.0-16.0); Immature Granulocytes % 9.3 %; Immature Granulocytes Absolute 4.86 #; Lymphocytes # 1.5 10*3/uL (1.4-4.0); Lymphocytes % 2.9 % (21.3-54.2); Mean Corpuscular HGB Conc 31.7 GM/DL (32-36); Mean Corpuscular Volume 104.3 FL (87-102); NRBC # 1.17 10*3/uL; Neutrophils % 83.7 % (38.7-73.9); Platelet Count 254 T/CUMM (130-400); Red Blood Count 3.27 MC/CUMM (3.8-5.5); Red Cell Distribution Width 14.8 % (9.3-17.3)
[2020-02-04 04:51] LABS: White Blood Count 52.2 T/CUMM (4-12)
[2020-02-04 05:03] LABS: Albumin 2.2 G/DL (3.4-5.0); Bilirubin,Total 1.1 MG/DL (0.2-1.0); Calcium 7.9 MG/DL (8.5-10.1); Osmolality,Calculated 320.3 MOS/KG (273-304); Total Protein 6.1 G/DL (6.4-8.3)
[2020-02-04 05:07] LABS: Band Neutrophils 4 % (0-10); Hypochromasia 1+; Lymphocytes 8 % (20-55); Macrocytosis Slight; Nucleated Red Blood Cells 1 (0-5); Platelet Estimate Adequate; Segmented Neutrophils 84 % (50-85); Total Cells Counted 100
[2020-02-04] MEDS: CHOLECALCIFEROL 1,000 UNIT TABLET PO SCH (08:12)
[2020-02-04] MEDS: ASCORBIC ACID 500 MG TABLET PO SCH ×2 (08:12→20:25)
[2020-02-04] MEDS: METOPROLOL TARTRATE 25 MG TABLET NG SCH ×2 (08:12→20:25)
[2020-02-04] MEDS: PANTOPRAZOLE 40 MG VIAL IV SCH (08:12)
[2020-02-04] MEDS: LIDOCAINE 5% PATCH TRANSDERM SCH (08:12)
[2020-02-04] MEDS: MULTIVITAMIN (BEROCCA) TABLET PO SCH (08:13)
[2020-02-04] MEDS: CETIRIZINE 10 MG TABLET PO SCH (08:13)
[2020-02-04] MEDS: ZINC SULFATE 220 MG CAPSULE PO SCH (08:13)
[2020-02-04] MEDS: ENOXAPARIN 30 MG/0.3 ML SYRINGE SUBCUT SCH (09:27)
[2020-02-04] MEDS: MEROPENEM 500 MG in SODIUM CHLORIDE 0.9% 100 ML IV SCH (11:59)
[2020-02-04] MEDS: INSULIN GLARGINE 100 UNIT/ML SUBCUT SCH (20:20)
[2020-02-05] MEDS: DEXAMETHASONE 10 MG/1 ML VIAL IV SCH (00:02)
[2020-02-05] MEDS: ALBUTEROL INHALER 18 GM INH SCH ×7 (00:02→23:54)
[2020-02-05] MEDS: INSULIN REGULAR 100 UNIT/ML SUBCUT SCH ×5 (00:03→23:54)
[2020-02-05] MEDS: LINEZOLID INJ 600 MG in PREMIX 1 EACH IV SCH ×2 (00:03→12:32)
[2020-02-05 03:50] LABS: ABG Base Excess 0.7 MMOL/L (-2.5-2.5); ABG HCO3 25.1 MMOL/L (20-26); ABG Oxygen Saturation 99.5 % (95-100); ABG PCO2 41.1 MM HG (35-48); ABG PH 7.401 (7.35-7.45); ABG TCO2 23.4 MMOL/L (23-27); Allen Test Positive; Pt O2 Delivery Device Ventilator
[2020-02-05 03:58] LABS: Basophils # 0.1 10*3/uL (0.0-0.2); Basophils % 0.3 % (0.0-0.8); Hemoglobin 9.1 GM/DL (12.0-16.0); Immature Granulocytes % 5.8 %; Immature Granulocytes Absolute 1.35 #; Lymphocytes # 0.8 10*3/uL (1.4-4.0); Lymphocytes % 3.5 % (21.3-54.2); Mean Corpuscular HGB Conc 32.5 GM/DL (32-36); Mean Corpuscular Volume 98.6 FL (87-102); Mean Platelet Volume 12.2 FL (9.6-12.0); Monocytes % 2.2 % (1.7-12.7); NRBC # 0.11 10*3/uL; Neutrophils % 88.2 % (38.7-73.9); Platelet Count 145 T/CUMM (130-400); Red Blood Count 2.84 MC/CUMM (3.8-5.5); Red Cell Distribution Width 14.5 % (9.3-17.3); White Blood Count 23.2 T/CUMM (4-12)
[2020-02-05 04:26] LABS: Lymphocytes 4 % (20-55); Nucleated Red Blood Cells 1 (0-5); Segmented Neutrophils 88 % (50-85); Total Cells Counted 100
[2020-02-05 04:27] LABS: Hypochromasia 1+; Macrocytosis Slight; Ovalocytes Slight; Platelet Estimate Adequate
[2020-02-05 04:41] LABS: Albumin 1.9 G/DL (3.4-5.0); Bilirubin,Total 0.4 MG/DL (0.2-1.0); Calcium 7.2 MG/DL (8.5-10.1); Osmolality,Calculated 327.8 MOS/KG (273-304); Total Protein 5.5 G/DL (6.4-8.3)
[2020-02-05] MEDS: LIDOCAINE 5% PATCH TRANSDERM SCH (10:05)
[2020-02-05] MEDS: PANTOPRAZOLE 40 MG VIAL IV SCH (10:05)
[2020-02-05] MEDS: ENOXAPARIN 30 MG/0.3 ML SYRINGE SUBCUT SCH (10:05)
[2020-02-05] MEDS: CHOLECALCIFEROL 1,000 UNIT TABLET PO SCH (10:15)
[2020-02-05] MEDS: CETIRIZINE 10 MG TABLET PO SCH (10:15)
[2020-02-05] MEDS: MULTIVITAMIN (BEROCCA) TABLET PO SCH (10:15)
[2020-02-05] MEDS: METOPROLOL TARTRATE 25 MG TABLET NG SCH ×2 (10:55→20:05)
[2020-02-05] MEDS: MEROPENEM 500 MG in SODIUM CHLORIDE 0.9% 100 ML IV SCH (11:50)
[2020-02-05] MEDS: ASCORBIC ACID 500 MG TABLET PO SCH ×2 (12:42→20:04)
[2020-02-05] MEDS: INSULIN GLARGINE 100 UNIT/ML SUBCUT SCH (20:05)
[2020-02-06] MEDS: DEXAMETHASONE 10 MG/1 ML VIAL IV SCH ×2 (00:04→23:05)
[2020-02-06] MEDS: LINEZOLID INJ 600 MG in PREMIX 1 EACH IV SCH ×2 (00:06→13:32)
[2020-02-06 04:45] LABS: ABG Base Excess 0.9 MMOL/L (-2.5-2.5); ABG HCO3 25.2 MMOL/L (20-26); ABG TCO2 23.2 MMOL/L (23-27); Allen Test Positive; Pt O2 Delivery Device Ventilator
[2020-02-06] MEDS: INSULIN REGULAR 100 UNIT/ML SUBCUT SCH ×3 (05:34→17:02)
[2020-02-06] MEDS: ALBUTEROL INHALER 18 GM INH SCH ×2 (05:34→08:26)
[2020-02-06 05:46] LABS: Basophils # 0.1 10*3/uL (0.0-0.2); Basophils % 0.3 % (0.0-0.8); Hematocrit 28.6 VOL% (35.7-47.0); Hemoglobin 9.3 GM/DL (12.0-16.0); Immature Granulocytes % 7.2 %; Immature Granulocytes Absolute 1.86 #; Lymphocytes # 0.7 10*3/uL (1.4-4.0); Lymphocytes % 2.5 % (21.3-54.2); Mean Corpuscular HGB Conc 32.5 GM/DL (32-36); Mean Platelet Volume 12.6 FL (9.6-12.0); Monocytes % 1.7 % (1.7-12.7); NRBC # 0.06 10*3/uL; Neutrophils % 88.3 % (38.7-73.9); Platelet Count 143 T/CUMM (130-400); Red Blood Count 2.86 MC/CUMM (3.8-5.5); Red Cell Distribution Width 14.7 % (9.3-17.3); White Blood Count 25.9 T/CUMM (4-12)
[2020-02-06 06:03] LABS: Bilirubin,Total 0.8 MG/DL (0.2-1.0); Calcium 7.8 MG/DL (8.5-10.1); Osmolality,Calculated 324.1 MOS/KG (273-304); Total Protein 5.7 G/DL (6.4-8.3)
[2020-02-06 06:08] LABS: Bilirubin,Direct 0.4 MG/DL (0.0-0.20); Bilirubin,Indirect 0.3 MG/DL (0.0-1.0); Bilirubin,Total 0.7 MG/DL (0.2-1.0); Total Protein 5.2 G/DL (6.4-8.3)
[2020-02-06 06:24] LABS: Band Neutrophils 1 % (0-10); Hypochromasia 1+; Lymphocytes 3 % (20-55); Macrocytosis Slight; Myelocytes 2 %; Platelet Estimate Adequate; Segmented Neutrophils 89 % (50-85); Total Cells Counted 100
[2020-02-06] MEDS: CHOLECALCIFEROL 1,000 UNIT TABLET PO SCH (08:23)
[2020-02-06] MEDS: ASCORBIC ACID 500 MG TABLET PO SCH ×2 (08:23→20:22)
[2020-02-06] MEDS: PANTOPRAZOLE 40 MG VIAL IV SCH (08:24)
[2020-02-06] MEDS: METOPROLOL TARTRATE 25 MG TABLET NG SCH ×2 (08:24→20:22)
[2020-02-06] MEDS: MULTIVITAMIN (BEROCCA) TABLET PO SCH (08:24)
[2020-02-06] MEDS: CETIRIZINE 10 MG TABLET PO SCH (08:24)
[2020-02-06] MEDS: ENOXAPARIN 30 MG/0.3 ML SYRINGE SUBCUT SCH (08:25)
[2020-02-06] MEDS: LIDOCAINE 5% PATCH TRANSDERM SCH (08:25)
[2020-02-06] MEDS: MEROPENEM 500 MG in SODIUM CHLORIDE 0.9% 100 ML IV SCH (12:08)
[2020-02-06] MEDS ORDERED: CARBOXYMETHYLCELLULOSE 1% OPH SOLN BOTH EYES PRN (15:29)
[2020-02-06] MEDS: INSULIN GLARGINE 100 UNIT/ML SUBCUT SCH (20:22)
[2020-02-06] MEDS: ZAFIRLUKAST 20 MG PO SCH (20:47)
[2020-02-06] MEDS: ACETAMINOPHEN 325 MG TABLET PO PRN (23:05)
[2020-02-07] MEDS: INSULIN REGULAR 100 UNIT/ML SUBCUT SCH ×4 (00:17→17:04)
[2020-02-07] MEDS: LINEZOLID INJ 600 MG in PREMIX 1 EACH IV SCH ×2 (01:45→12:58)
[2020-02-07 04:27] LABS: Basophils # 0.1 10*3/uL (0.0-0.2); Basophils % 0.4 % (0.0-0.8); Hematocrit 30.3 VOL% (35.7-47.0); Immature Granulocytes % 7.4 %; Lymphocytes # 0.7 10*3/uL (1.4-4.0); Lymphocytes % 2.5 % (21.3-54.2); Mean Corpuscular Volume 98.7 FL (87-102); Mean Platelet Volume 12.7 FL (9.6-12.0); Monocytes % 1.8 % (1.7-12.7); NRBC # 0.03 10*3/uL; Neutrophils % 87.9 % (38.7-73.9); Platelet Count 153 T/CUMM (130-400); Red Blood Count 3.07 MC/CUMM (3.8-5.5); Red Cell Distribution Width 15.1 % (9.3-17.3); White Blood Count 26.9 T/CUMM (4-12)
[2020-02-07 04:42] LABS: Albumin 1.9 G/DL (3.4-5.0); Bilirubin,Total 0.7 MG/DL (0.2-1.0); Osmolality,Calculated 321.1 MOS/KG (273-304); Total Protein 5.9 G/DL (6.4-8.3)
[2020-02-07 04:49] LABS: ABG Base Excess -0.1 MMOL/L (-2.5-2.5); ABG HCO3 23.7 MMOL/L (20-26); ABG Oxygen Saturation 98.2 % (95-100); ABG PCO2 35.3 MM HG (35-48); ABG PH 7.445 (7.35-7.45); ABG PO2 123.3 MM HG (80-95); ABG TCO2 24.8 MMOL/L (23-27); Allen Test Positive; Pt O2 Delivery Device Ventilator
[2020-02-07 04:54] LABS: Band Neutrophils 2 % (0-10); Lymphocytes 1 % (20-55); Macrocytosis Slight; Segmented Neutrophils 94 % (50-85); Total Cells Counted 100
[2020-02-07 04:55] LABS: Platelet Estimate Adequate
[2020-02-07] MEDS: CHOLECALCIFEROL 1,000 UNIT TABLET PO SCH (08:43)
[2020-02-07] MEDS: METOPROLOL TARTRATE 25 MG TABLET NG SCH ×2 (08:44→20:03)
[2020-02-07] MEDS: CETIRIZINE 10 MG TABLET PO SCH (08:44)
[2020-02-07] MEDS: MULTIVITAMIN (BEROCCA) TABLET PO SCH (08:44)
[2020-02-07] MEDS: PANTOPRAZOLE 40 MG VIAL IV SCH (08:44)
[2020-02-07] MEDS: ASCORBIC ACID 500 MG TABLET PO SCH ×2 (08:44→20:02)
[2020-02-07] MEDS: LIDOCAINE 5% PATCH TRANSDERM SCH (08:45)
[2020-02-07] MEDS: ENOXAPARIN 30 MG/0.3 ML SYRINGE SUBCUT SCH (08:45)
[2020-02-07] MEDS: ZAFIRLUKAST 20 MG PO SCH ×2 (08:46→20:14)
[2020-02-07] MEDS: MEROPENEM 500 MG in SODIUM CHLORIDE 0.9% 100 ML IV SCH (11:59)
[2020-02-07] MEDS ORDERED: MORPHINE 4 MG/1 ML VIAL IV ONE (17:21)
[2020-02-07] MEDS: ENOXAPARIN 60 MG/0.6 ML SYRINGE SUBCUT SCH (20:03)
[2020-02-07] MEDS: ACETAMINOPHEN 325 MG TABLET PO PRN (20:03)
[2020-02-07] MEDS: INSULIN GLARGINE 100 UNIT/ML SUBCUT SCH (20:04)
[2020-02-07] MEDS: DEXAMETHASONE 10 MG/1 ML VIAL IV SCH (23:38)
[2020-02-08] MEDS: INSULIN REGULAR 100 UNIT/ML SUBCUT SCH ×4 (00:05→17:32)
[2020-02-08] MEDS: LINEZOLID INJ 600 MG in PREMIX 1 EACH IV SCH (01:05)
[2020-02-08 04:29] LABS: Basophils # 0.1 10*3/uL (0.0-0.2); Basophils % 0.4 % (0.0-0.8); Hematocrit 34.5 VOL% (35.7-47.0); Hemoglobin 11.2 GM/DL (12.0-16.0); Immature Granulocytes % 6.2 %; Immature Granulocytes Absolute 1.85 #; Lymphocytes # 0.7 10*3/uL (1.4-4.0); Lymphocytes % 2.2 % (21.3-54.2); Mean Corpuscular HGB Conc 32.5 GM/DL (32-36); Mean Corpuscular Volume 100.3 FL (87-102); Mean Platelet Volume 12.4 FL (9.6-12.0); Monocytes % 1.7 % (1.7-12.7); Neutrophils % 89.5 % (38.7-73.9); Platelet Count 165 T/CUMM (130-400); Red Blood Count 3.44 MC/CUMM (3.8-5.5); Red Cell Distribution Width 15.3 % (9.3-17.3); White Blood Count 29.6 T/CUMM (4-12)
[2020-02-08 04:33] LABS: Allen Test Positive; Pt O2 Delivery Device Ventilator
[2020-02-08 04:35] LABS: ABG Base Excess -0.5 MMOL/L (-2.5-2.5); ABG Oxygen Saturation 98.2 % (95-100); ABG PCO2 37.9 MM HG (35-48); ABG PH 7.409 (7.35-7.45); ABG TCO2 21.6 MMOL/L (23-27)
[2020-02-08 04:49] LABS: Band Neutrophils 5 % (0-10); Lymphocytes 4 % (20-55); Platelet Estimate Adequate; Segmented Neutrophils 88 % (50-85); Total Cells Counted 100
[2020-02-08 04:50] LABS: Macrocytosis Slight
[2020-02-08 05:03] LABS: Calcium 8.5 MG/DL (8.5-10.1); Ferritin 2958.5 ng/ml (8-252); Osmolality,Calculated 320.7 MOS/KG (273-304)
[2020-02-08] MEDS: ENOXAPARIN 60 MG/0.6 ML SYRINGE SUBCUT SCH (08:50)
[2020-02-08] MEDS: ASCORBIC ACID 500 MG TABLET PO SCH ×2 (08:51→20:02)
[2020-02-08] MEDS: CHOLECALCIFEROL 1,000 UNIT TABLET PO SCH (08:52)
[2020-02-08] MEDS: PANTOPRAZOLE 40 MG VIAL IV SCH (08:52)
[2020-02-08] MEDS: MULTIVITAMIN (BEROCCA) TABLET PO SCH (08:52)
[2020-02-08] MEDS: LIDOCAINE 5% PATCH TRANSDERM SCH (08:53)
[2020-02-08] MEDS: ZAFIRLUKAST 20 MG PO SCH ×2 (08:58→20:03)
[2020-02-08] MEDS: METOPROLOL TARTRATE 25 MG TABLET NG SCH ×2 (08:59→20:02)
[2020-02-08] MEDS: CETIRIZINE 10 MG TABLET PO SCH (08:59)
[2020-02-08] MEDS: MEROPENEM 500 MG in SODIUM CHLORIDE 0.9% 100 ML IV SCH (12:10)
[2020-02-08] MEDS ORDERED: FUROSEMIDE 40 MG/4 ML VIAL IV ONE (14:00)
[2020-02-08] MEDS: DEXAMETHASONE 10 MG/1 ML VIAL IV SCH (14:30)
[2020-02-08] MEDS: LABETALOL 20 MG/4 ML SYRINGE IV PRN (16:13)
[2020-02-08] MEDS: cloNIDine 0.1 MG TABLET PO PRN (17:59)
[2020-02-08] MEDS: INSULIN GLARGINE 100 UNIT/ML SUBCUT SCH (20:02)
[2020-02-09] MEDS: INSULIN REGULAR 100 UNIT/ML SUBCUT SCH ×5 (00:30→23:33)
[2020-02-09 04:44] LABS: ABG Base Excess 2.2 MMOL/L (-2.5-2.5); ABG HCO3 24.9 MMOL/L (20-26); ABG Oxygen Saturation 95.7 % (95-100); ABG PCO2 31.3 MM HG (35-48); ABG PH 7.518 (7.35-7.45); ABG PO2 79.1 MM HG (80-95); ABG TCO2 25.8 MMOL/L (23-27); Allen Test Positive; Pt O2 Delivery Device Ventilator
[2020-02-09 05:09] LABS: Basophils % 0.1 % (0.0-0.8); Eosinophils # 0.1 10*3/uL (0.0-0.87); Eosinophils % 0.5 % (0.00-10.9); Hematocrit 27.1 VOL% (35.7-47.0); Immature Granulocytes % 4.8 %; Immature Granulocytes Absolute 0.65 #; Lymphocytes # 1.2 10*3/uL (1.4-4.0); Lymphocytes % 8.9 % (21.3-54.2); Mean Corpuscular HGB Conc 32.5 GM/DL (32-36); Mean Corpuscular Volume 98.9 FL (87-102); Mean Platelet Volume 12.2 FL (9.6-12.0); Monocytes % 2.1 % (1.7-12.7); Neutrophils % 83.6 % (38.7-73.9); Platelet Count 158 T/CUMM (130-400); Red Cell Distribution Width 15.2 % (9.3-17.3)
[2020-02-09 05:13] LABS: Hemoglobin 8.8 GM/DL (12.0-16.0); Red Blood Count 2.74 MC/CUMM (3.8-5.5); White Blood Count 13.6 T/CUMM (4-12)
[2020-02-09 05:19] LABS: Hypochromasia 1+; Lymphocytes 4 % (20-55); Microcytosis 1+; Platelet Estimate Adequate; Segmented Neutrophils 95 % (50-85); Total Cells Counted 100
[2020-02-09 05:23] LABS: Albumin 1.6 G/DL (3.4-5.0); Bilirubin,Direct 0.3 MG/DL (0.0-0.20); Bilirubin,Indirect 0.3 MG/DL (0.0-1.0); Bilirubin,Total 0.6 MG/DL (0.2-1.0); Total Protein 5.1 G/DL (6.4-8.3)
[2020-02-09 05:24] LABS: Albumin 1.6 G/DL (3.4-5.0); Bilirubin,Total 0.5 MG/DL (0.2-1.0); Osmolality,Calculated 328.1 MOS/KG (273-304); Total Protein 5.6 G/DL (6.4-8.3)
[2020-02-09] MEDS: ENOXAPARIN 60 MG/0.6 ML SYRINGE SUBCUT SCH (07:26)
[2020-02-09] MEDS: MULTIVITAMIN (BEROCCA) TABLET PO SCH (08:57)
[2020-02-09] MEDS: PANTOPRAZOLE 40 MG VIAL IV SCH (08:58)
[2020-02-09] MEDS: CHOLECALCIFEROL 1,000 UNIT TABLET PO SCH (08:58)
[2020-02-09] MEDS: ASCORBIC ACID 500 MG TABLET PO SCH ×2 (08:58→21:08)
[2020-02-09] MEDS: CETIRIZINE 10 MG TABLET PO SCH (08:58)
[2020-02-09] MEDS: CLOPIDOGREL 75 MG TABLET PO SCH (08:59)
[2020-02-09] MEDS: ZAFIRLUKAST 20 MG PO SCH ×2 (08:59→21:10)
[2020-02-09] MEDS: METOPROLOL TARTRATE 25 MG TABLET NG SCH ×2 (08:59→21:09)
[2020-02-09] MEDS: POTASSIUM CHLORIDE 20 MEQ/15 ML UDCUP PER TUBE PRN ×4 (09:00→18:50)
[2020-02-09] MEDS: LIDOCAINE 5% PATCH TRANSDERM SCH (09:03)
[2020-02-09] MEDS: cloNIDine 0.1 MG TABLET PO PRN (09:37)
[2020-02-09] MEDS ORDERED: VANCOMYCIN INJ 1,500 MG in SODIUM CHLORIDE 0.9% 500 ML IV ONE (10:00)
[2020-02-09] MEDS: LABETALOL 20 MG/4 ML SYRINGE IV PRN (10:31)
[2020-02-09] MEDS: amLODIPine 5 MG TABLET PO SCH (10:45)
[2020-02-09] MEDS: MEROPENEM 500 MG in SODIUM CHLORIDE 0.9% 100 ML IV SCH (12:59)
[2020-02-09] MEDS: DEXAMETHASONE 10 MG/1 ML VIAL IV SCH (14:24)
[2020-02-09] MEDS: ACETAMINOPHEN 325 MG TABLET PO PRN ×2 (16:49→23:10)
[2020-02-09] MEDS ORDERED: GABAPENTIN 600 MG TABLET PO SCH (21:00)
[2020-02-09] MEDS ORDERED: CARBIDOPA/LEVODOPA 25-100 MG TABLET PO SCH (21:00)
[2020-02-09] MEDS: INSULIN GLARGINE 100 UNIT/ML SUBCUT SCH (21:07)
[2020-02-09] MEDS: CARBIDOPA/LEVODOPA 25-100 MG TABLET PER TUBE SCH (21:08)
[2020-02-09] MEDS: ATORVASTATIN 40 MG TABLET PO SCH (21:09)
[2020-02-09] MEDS: GABAPENTIN 50 MG/ML 30 ML/BOTTLE PO SCH (21:09)
[2020-02-10] MEDS: POTASSIUM CHLORIDE 20 MEQ/15 ML UDCUP PER TUBE PRN (04:09)
[2020-02-10 04:31] LABS: Allen Test Positive; Pt O2 Delivery Device Ventilator
[2020-02-10 04:46] LABS: ABG Base Excess -0.8 MMOL/L (-2.5-2.5); ABG HCO3 23.8 MMOL/L (20-26); ABG Oxygen Saturation 98.6 % (95-100); ABG PCO2 31.1 MM HG (35-48); ABG PH 7.466 (7.35-7.45)
[2020-02-10 05:08] LABS: Basophils % 0.2 % (0.0-0.8); Eosinophils # 0.2 10*3/uL (0.0-0.87); Eosinophils % 1.5 % (0.00-10.9); Hematocrit 26.5 VOL% (35.7-47.0); Hemoglobin 8.3 GM/DL (12.0-16.0); Immature Granulocytes % 2.7 %; Immature Granulocytes Absolute 0.35 #; Lymphocytes # 1.1 10*3/uL (1.4-4.0); Lymphocytes % 8.3 % (21.3-54.2); Mean Corpuscular HGB Conc 31.3 GM/DL (32-36); Mean Corpuscular Volume 101.1 FL (87-102); Mean Platelet Volume 12.3 FL (9.6-12.0); Monocytes % 2.6 % (1.7-12.7); Neutrophils % 84.7 % (38.7-73.9); Platelet Count 158 T/CUMM (130-400); Red Blood Count 2.62 MC/CUMM (3.8-5.5); Red Cell Distribution Width 15.4 % (9.3-17.3); White Blood Count 12.9 T/CUMM (4-12)
[2020-02-10 05:38] LABS: Calcium 8.1 MG/DL (8.5-10.1)
[2020-02-10 05:54] VITALS: BP 108/46
[2020-02-10] MEDS: INSULIN REGULAR 100 UNIT/ML SUBCUT SCH ×3 (06:10→17:09)
[2020-02-10] MEDS: ENOXAPARIN 60 MG/0.6 ML SYRINGE SUBCUT SCH (08:22)
[2020-02-10] MEDS: ASCORBIC ACID 500 MG TABLET PO SCH ×2 (08:23→20:17)
[2020-02-10] MEDS: CETIRIZINE 10 MG TABLET PO SCH (08:23)
[2020-02-10] MEDS: MULTIVITAMIN (BEROCCA) TABLET PO SCH (08:23)
[2020-02-10] MEDS: CHOLECALCIFEROL 1,000 UNIT TABLET PO SCH (08:23)
[2020-02-10] MEDS: CLOPIDOGREL 75 MG TABLET PO SCH (08:23)
[2020-02-10] MEDS: amLODIPine 5 MG TABLET PO SCH ×3 (08:23→09:08)
[2020-02-10] MEDS: LIDOCAINE 5% PATCH TRANSDERM SCH (08:24)
[2020-02-10] MEDS: METOPROLOL TARTRATE 25 MG TABLET NG SCH ×3 (08:25→20:18)
[2020-02-10] MEDS: PANTOPRAZOLE 40 MG VIAL IV SCH (08:25)
[2020-02-10] MEDS: GABAPENTIN 50 MG/ML 30 ML/BOTTLE PO SCH ×2 (08:27→20:44)
[2020-02-10] MEDS: CARBIDOPA/LEVODOPA 25-100 MG TABLET PER TUBE SCH ×4 (08:27→20:17)
[2020-02-10] MEDS: ZAFIRLUKAST 20 MG PO SCH ×2 (08:28→20:17)
[2020-02-10] MEDS: LABETALOL 20 MG/4 ML SYRINGE IV PRN ×2 (09:40→16:27)
[2020-02-10 12:01] LABS: ABG Base Excess -2.8 MMOL/L (-2.5-2.5); ABG Oxygen Saturation 93.2 % (95-100); ABG PCO2 38.3 MM HG (35-48); ABG PO2 74.1 MM HG (80-95); ABG TCO2 20.1 MMOL/L (23-27); Allen Test Positive; Pt O2 Delivery Device Ventilator
[2020-02-10] MEDS: DEXAMETHASONE 4 MG/1 ML VIAL IV SCH (12:03)
[2020-02-10] MEDS: MEROPENEM 500 MG in SODIUM CHLORIDE 0.9% 100 ML IV SCH (12:04)
[2020-02-10] MEDS ORDERED: VANCOMYCIN INJ 1,500 MG in SODIUM CHLORIDE 0.9% 500 ML IV PRN (12:19)
[2020-02-10] MEDS: INSULIN GLARGINE 100 UNIT/ML SUBCUT SCH (20:18)
[2020-02-10] MEDS: ATORVASTATIN 40 MG TABLET PO SCH (20:18)
[2020-02-11] MEDS: INSULIN REGULAR 100 UNIT/ML SUBCUT SCH ×4 (00:30→17:36)
[2020-02-11] MEDS: LABETALOL 20 MG/4 ML SYRINGE IV PRN ×3 (00:47→19:46)
[2020-02-11 04:36] LABS: Basophils % 0.1 % (0.0-0.8); Eosinophils # 0.2 10*3/uL (0.0-0.87); Hematocrit 28.1 VOL% (35.7-47.0); Hemoglobin 8.8 GM/DL (12.0-16.0); Immature Granulocytes % 1.8 %; Immature Granulocytes Absolute 0.28 #; Lymphocytes # 1.5 10*3/uL (1.4-4.0); Lymphocytes % 9.4 % (21.3-54.2); Mean Corpuscular HGB Conc 31.3 GM/DL (32-36); Mean Corpuscular Volume 102.9 FL (87-102); Mean Platelet Volume 12.3 FL (9.6-12.0); Monocytes % 3.9 % (1.7-12.7); Neutrophils % 83.8 % (38.7-73.9); Platelet Count 179 T/CUMM (130-400); Red Blood Count 2.73 MC/CUMM (3.8-5.5); Red Cell Distribution Width 15.7 % (9.3-17.3); White Blood Count 15.5 T/CUMM (4-12)
[2020-02-11 04:45] LABS: Allen Test Positive; Pt O2 Delivery Device Ventilator
[2020-02-11 04:54] LABS: ABG Base Excess 6.7 MMOL/L (-2.5-2.5); ABG HCO3 30.5 MMOL/L (20-26); ABG Oxygen Saturation 98.1 % (95-100); ABG PCO2 43.6 MM HG (35-48); ABG PH 7.463 (7.35-7.45); ABG PO2 95.4 MM HG (80-95); ABG TCO2 27.4 MMOL/L (23-27)
[2020-02-11] MEDS: ENOXAPARIN 60 MG/0.6 ML SYRINGE SUBCUT SCH (07:52)
[2020-02-11] MEDS: ZINC GLUCONATE 50 MG TABLET PO SCH (08:11)
[2020-02-11] MEDS: CARBIDOPA/LEVODOPA 25-100 MG TABLET PER TUBE SCH ×4 (08:11→20:05)
[2020-02-11] MEDS: LIDOCAINE 5% PATCH TRANSDERM SCH (08:12)
[2020-02-11] MEDS: MULTIVITAMIN (BEROCCA) TABLET PO SCH (08:12)
[2020-02-11] MEDS: CHOLECALCIFEROL 1,000 UNIT TABLET PO SCH (08:12)
[2020-02-11] MEDS: METOPROLOL TARTRATE 25 MG TABLET NG SCH ×2 (08:14→20:04)
[2020-02-11] MEDS: GABAPENTIN 50 MG/ML 30 ML/BOTTLE PO SCH (08:14)
[2020-02-11] MEDS: CETIRIZINE 1 MG/ML 30 ML/BOTTLE PO SCH (08:15)
[2020-02-11] MEDS: ZAFIRLUKAST 20 MG PO SCH ×2 (08:15→20:05)
[2020-02-11] MEDS: FAMOTIDINE 8 MG/ML 50 ML/BOTTLE PO SCH (08:16)
[2020-02-11] MEDS: ASCORBIC ACID 500 MG TABLET PO SCH ×2 (08:16→20:04)
[2020-02-11] MEDS: CLOPIDOGREL 75 MG TABLET PO SCH (08:17)
[2020-02-11] MEDS: PANTOPRAZOLE 40 MG VIAL IV SCH (08:17)
[2020-02-11] MEDS: amLODIPine 10 MG TABLET PO SCH (08:26)
[2020-02-11] MEDS ORDERED: hydrALAZINE 25 MG TABLET PO PRN (09:00)
[2020-02-11] MEDS ORDERED: CYANOCOBALAMIN 1000 MCG/1 ML VIAL IM SCH (09:00)
[2020-02-11] MEDS ORDERED: LORazepam 2 MG/1 ML VIAL IV PRN (09:04)
[2020-02-11] MEDS: ACETAMINOPHEN 325 MG TABLET PO PRN (09:26)
[2020-02-11 09:42] LABS: Calcium 8.4 MG/DL (8.5-10.1); Osmolality,Calculated 311.7 MOS/KG (273-304)
[2020-02-11] MEDS: DEXMEDETOMIDINE 200 MCG in SODIUM CHLORIDE 0.9% 48 ML IV PRN ×3 (10:22→15:54)
[2020-02-11] MEDS: LORazepam 2 MG/1 ML VIAL IV PRN ×2 (10:40→15:24)
[2020-02-11 10:49] LABS: ABG Base Excess -2.9 MMOL/L (-2.5-2.5); ABG Oxygen Saturation 97.8 % (95-100); ABG PCO2 39.2 MM HG (35-48); ABG PH 7.361 (7.35-7.45); ABG TCO2 20.4 MMOL/L (23-27); Allen Test Positive; Pt O2 Delivery Device Ventilator
[2020-02-11] MEDS ORDERED: VANCOMYCIN INJ 1,500 MG in SODIUM CHLORIDE 0.9% 500 ML IV ONE (12:00)
[2020-02-11] MEDS ORDERED: MAGNESIUM SULF RIDER 4 GM in PREMIX 1 EACH IV PRN (12:40)
[2020-02-11] MEDS ORDERED: MAGNESIUM SULF RIDER 2 GM in PREMIX 1 EACH IV PRN (12:40)
[2020-02-11] MEDS: DEXAMETHASONE 4 MG/1 ML VIAL IV SCH (12:43)
[2020-02-11] MEDS ORDERED: FUROSEMIDE 40 MG/4 ML VIAL IV ONE (13:02)
[2020-02-11 14:45] LABS: ABG Base Excess -3.3 MMOL/L (-2.5-2.5); ABG HCO3 21.6 MMOL/L (20-26); ABG Oxygen Saturation 95.1 % (95-100); ABG PCO2 37.4 MM HG (35-48); ABG PH 7.369 (7.35-7.45); ABG TCO2 19.7 MMOL/L (23-27); Allen Test Positive; Pt O2 Delivery Device Ventilator
[2020-02-11] MEDS: ATORVASTATIN 40 MG TABLET PO SCH (20:04)
[2020-02-11] MEDS: INSULIN GLARGINE 100 UNIT/ML SUBCUT SCH (20:05)
[2020-02-12] MEDS: DEXMEDETOMIDINE 200 MCG in SODIUM CHLORIDE 0.9% 48 ML IV PRN ×3 (00:13→15:36)
[2020-02-12] MEDS: INSULIN REGULAR 100 UNIT/ML SUBCUT SCH ×4 (00:14→17:57)
[2020-02-12 04:43] LABS: ABG Base Excess -1.7 MMOL/L (-2.5-2.5); ABG HCO3 22.9 MMOL/L (20-26); ABG PCO2 39.8 MM HG (35-48); ABG PH 7.375 (7.35-7.45); ABG PO2 61.4 MM HG (80-95); ABG TCO2 21.4 MMOL/L (23-27); Allen Test Positive; Pt O2 Delivery Device Ventilator
[2020-02-12 05:43] LABS: Basophils % 0.2 % (0.0-0.8); Eosinophils # 0.2 10*3/uL (0.0-0.87); Eosinophils % 1.7 % (0.00-10.9); Hematocrit 28.7 VOL% (35.7-47.0); Hemoglobin 8.9 GM/DL (12.0-16.0); Immature Granulocytes % 1.5 %; Immature Granulocytes Absolute 0.21 #; Lymphocytes # 1.4 10*3/uL (1.4-4.0); Lymphocytes % 9.6 % (21.3-54.2); Mean Corpuscular Volume 102.9 FL (87-102); Mean Platelet Volume 11.3 FL (9.6-12.0); Monocytes % 4.5 % (1.7-12.7); Neutrophils % 82.5 % (38.7-73.9); Platelet Count 207 T/CUMM (130-400); Red Blood Count 2.79 MC/CUMM (3.8-5.5); Red Cell Distribution Width 14.8 % (9.3-17.3); White Blood Count 14.4 T/CUMM (4-12)
[2020-02-12 06:07] LABS: Alanine Aminotransferase < 6 U/L (13-56); Albumin 1.6 G/DL (3.4-5.0); Alkaline Phosphatase 82 U/L (45-117); Aspartate Amino Transferase 32 U/L (0-37); Blood Urea Nitrogen 69 MG/DL (7-18); Calcium 8.4 MG/DL (8.5-10.1); Estimated Glom Filtration Rate 52 ML/MIN; Glucose 111 MG/DL (74-106); Total Protein 5.9 G/DL (6.4-8.3)
[2020-02-12 06:25] LABS: Calcium 8.3 MG/DL (8.5-10.1)
[2020-02-12] MEDS: ENOXAPARIN 60 MG/0.6 ML SYRINGE SUBCUT SCH (08:52)
[2020-02-12] MEDS: CARBIDOPA/LEVODOPA 25-100 MG TABLET PER TUBE SCH ×4 (08:53→20:05)
[2020-02-12] MEDS: ZINC GLUCONATE 50 MG TABLET PO SCH (08:53)
[2020-02-12] MEDS: CHOLECALCIFEROL 1,000 UNIT TABLET PO SCH (08:54)
[2020-02-12] MEDS: MULTIVITAMIN (BEROCCA) TABLET PO SCH (08:54)
[2020-02-12] MEDS: LIDOCAINE 5% PATCH TRANSDERM SCH ×2 (08:54→16:00)
[2020-02-12] MEDS: ASCORBIC ACID 500 MG TABLET PO SCH ×2 (09:02→20:04)
[2020-02-12] MEDS: CLOPIDOGREL 75 MG TABLET PO SCH (09:03)
[2020-02-12] MEDS: FAMOTIDINE 8 MG/ML 50 ML/BOTTLE PO SCH (09:03)
[2020-02-12] MEDS: amLODIPine 10 MG TABLET PO SCH (09:03)
[2020-02-12] MEDS: METOPROLOL TARTRATE 25 MG TABLET NG SCH ×2 (09:03→20:04)
[2020-02-12] MEDS: PANTOPRAZOLE 40 MG VIAL IV SCH (09:03)
[2020-02-12] MEDS: ZAFIRLUKAST 20 MG PO SCH (09:03)
[2020-02-12] MEDS: CETIRIZINE 1 MG/ML 30 ML/BOTTLE PO SCH (09:04)
[2020-02-12] MEDS: DEXAMETHASONE 4 MG/1 ML VIAL IV SCH (12:10)
[2020-02-12] MEDS ORDERED: FUROSEMIDE 40 MG/4 ML VIAL IM ONE (14:04)
[2020-02-12] MEDS ORDERED: FUROSEMIDE 40 MG/4 ML VIAL IV ONE (14:15)
[2020-02-12] MEDS: ALBUTEROL INHALER 18 GM INH SCH ×2 (16:25→20:04)
[2020-02-12] MEDS: INSULIN GLARGINE 100 UNIT/ML SUBCUT SCH (20:04)
[2020-02-12] MEDS: ATORVASTATIN 40 MG TABLET PO SCH (20:05)
[2020-02-13] MEDS: ALBUTEROL INHALER 18 GM INH SCH ×5 (00:08→20:45)
[2020-02-13] MEDS: INSULIN REGULAR 100 UNIT/ML SUBCUT SCH ×4 (00:08→18:23)
[2020-02-13] MEDS: VANCOMYCIN INJ 1,500 MG in SODIUM CHLORIDE 0.9% 500 ML IV SCH (00:21)
[2020-02-13] MEDS: DEXMEDETOMIDINE 200 MCG in SODIUM CHLORIDE 0.9% 48 ML IV PRN ×5 (00:59→18:21)
[2020-02-13] MEDS: LABETALOL 20 MG/4 ML SYRINGE IV PRN (03:18)
[2020-02-13 04:05] LABS: Basophils % 0.1 % (0.0-0.8); Eosinophils # 0.3 10*3/uL (0.0-0.87); Eosinophils % 1.9 % (0.00-10.9); Hematocrit 28.1 VOL% (35.7-47.0); Immature Granulocytes % 1.1 %; Immature Granulocytes Absolute 0.18 #; Lymphocytes # 1.7 10*3/uL (1.4-4.0); Lymphocytes % 10.7 % (21.3-54.2); Mean Corpuscular Volume 99.3 FL (87-102); Mean Platelet Volume 11.2 FL (9.6-12.0); Neutrophils % 81.2 % (38.7-73.9); Platelet Count 285 T/CUMM (130-400); Red Blood Count 2.83 MC/CUMM (3.8-5.5); Red Cell Distribution Width 14.3 % (9.3-17.3); White Blood Count 16.1 T/CUMM (4-12)
[2020-02-13 04:35] LABS: Albumin 1.8 G/DL (3.4-5.0); Bilirubin,Direct 0.21 MG/DL (0.0-0.20); Bilirubin,Indirect 0.4 MG/DL (0.0-1.0); Bilirubin,Total 0.6 MG/DL (0.2-1.0); Calcium 8.6 MG/DL (8.5-10.1); Ferritin 1368.4 ng/ml (8-252); Osmolality,Calculated 301.1 MOS/KG (273-304); Total Protein 6.3 G/DL (6.4-8.3)
[2020-02-13 04:48] LABS: ABG Base Excess 0.6 MMOL/L (-2.5-2.5); ABG Oxygen Saturation 96.7 % (95-100); ABG PCO2 34.6 MM HG (35-48); ABG PH 7.453 (7.35-7.45); ABG PO2 83.4 MM HG (80-95); Allen Test Positive; Pt O2 Delivery Device Ventilator
[2020-02-13 07:11] LABS: Folate > 24.0 NG/ML (5.4-24.0); Vitamin B12 > 2000 PG/ML (211-911)
[2020-02-13] MEDS ORDERED: MORPHINE 4 MG/1 ML VIAL IV PRN (07:30)
[2020-02-13] MEDS ORDERED: MORPHINE 4 MG/1 ML VIAL ONE (07:37)
[2020-02-13] MEDS: POTASSIUM CHLORIDE 20 MEQ/15 ML UDCUP PER TUBE PRN ×3 (07:42→13:37)
[2020-02-13] MEDS: ENOXAPARIN 60 MG/0.6 ML SYRINGE SUBCUT SCH ×2 (07:42→20:23)
[2020-02-13] MEDS: amLODIPine 10 MG TABLET PO SCH (08:37)
[2020-02-13] MEDS: CARBIDOPA/LEVODOPA 25-100 MG TABLET PER TUBE SCH ×4 (08:38→20:23)
[2020-02-13] MEDS: ZINC GLUCONATE 50 MG TABLET PO SCH (08:38)
[2020-02-13] MEDS: ASCORBIC ACID 500 MG TABLET PO SCH ×2 (08:38→20:24)
[2020-02-13] MEDS: CHOLECALCIFEROL 1,000 UNIT TABLET PO SCH (08:38)
[2020-02-13] MEDS: CLOPIDOGREL 75 MG TABLET PO SCH (08:39)
[2020-02-13] MEDS: METOPROLOL TARTRATE 25 MG TABLET NG SCH ×2 (08:39→20:24)
[2020-02-13] MEDS: MULTIVITAMIN (BEROCCA) TABLET PO SCH (08:39)
[2020-02-13] MEDS: FAMOTIDINE 8 MG/ML 50 ML/BOTTLE PO SCH (08:40)
[2020-02-13] MEDS: PANTOPRAZOLE 40 MG VIAL IV SCH (09:00)
[2020-02-13] MEDS: DEXAMETHASONE 4 MG/1 ML VIAL IV SCH (11:30)
[2020-02-13] MEDS: INSULIN GLARGINE 100 UNIT/ML SUBCUT SCH (20:23)
[2020-02-13] MEDS: ATORVASTATIN 40 MG TABLET PO SCH (20:46)
[2020-02-14] MEDS: ALBUTEROL INHALER 18 GM INH SCH ×6 (00:07→20:33)
[2020-02-14] MEDS: INSULIN REGULAR 100 UNIT/ML SUBCUT SCH ×4 (00:08→17:49)
[2020-02-14] MEDS: DEXMEDETOMIDINE 400 MCG in SODIUM CHLORIDE 0.9% 96 ML IV PRN ×3 (02:27→17:36)
[2020-02-14 03:26] LABS: ABG Base Excess -1.6 MMOL/L (-2.5-2.5); ABG HCO3 23.1 MMOL/L (20-26); ABG Oxygen Saturation 96.1 % (95-100); ABG PCO2 28.5 MM HG (35-48); ABG PH 7.481 (7.35-7.45); ABG PO2 75.3 MM HG (80-95); ABG TCO2 19.7 MMOL/L (23-27)
[2020-02-14 05:14] LABS: Basophils % 0.2 % (0.0-0.8); Eosinophils # 0.3 10*3/uL (0.0-0.87); Eosinophils % 1.8 % (0.00-10.9); Hematocrit 24.7 VOL% (35.7-47.0); Immature Granulocytes Absolute 0.14 #; Lymphocytes # 1.7 10*3/uL (1.4-4.0); Lymphocytes % 12.1 % (21.3-54.2); Mean Corpuscular HGB Conc 32.4 GM/DL (32-36); Mean Corpuscular Volume 99.6 FL (87-102); Mean Platelet Volume 11.3 FL (9.6-12.0); Monocytes % 4.9 % (1.7-12.7); Platelet Count 278 T/CUMM (130-400); Red Blood Count 2.48 MC/CUMM (3.8-5.5); Red Cell Distribution Width 14.5 % (9.3-17.3); White Blood Count 14.1 T/CUMM (4-12)
[2020-02-14 05:33] LABS: Calcium 8.5 MG/DL (8.5-10.1); Osmolality,Calculated 300.3 MOS/KG (273-304)
[2020-02-14] MEDS: ENOXAPARIN 60 MG/0.6 ML SYRINGE SUBCUT SCH ×2 (07:54→20:32)
[2020-02-14] MEDS: CARBIDOPA/LEVODOPA 25-100 MG TABLET PER TUBE SCH ×4 (08:47→20:33)
[2020-02-14] MEDS: FAMOTIDINE 8 MG/ML 50 ML/BOTTLE PO SCH (08:47)
[2020-02-14] MEDS: CHOLECALCIFEROL 1,000 UNIT TABLET PO SCH (08:49)
[2020-02-14] MEDS: ZINC GLUCONATE 50 MG TABLET PO SCH (08:49)
[2020-02-14] MEDS: MULTIVITAMIN (BEROCCA) TABLET PO SCH (08:50)
[2020-02-14] MEDS: ASCORBIC ACID 500 MG TABLET PO SCH ×2 (08:50→20:32)
[2020-02-14] MEDS: METOPROLOL TARTRATE 25 MG TABLET NG SCH ×2 (08:50→20:33)
[2020-02-14] MEDS: CLOPIDOGREL 75 MG TABLET PO SCH (08:50)
[2020-02-14] MEDS: amLODIPine 10 MG TABLET PO SCH (08:50)
[2020-02-14] MEDS: DEXAMETHASONE 4 MG/1 ML VIAL IV SCH (12:19)
[2020-02-14] MEDS: VANCOMYCIN INJ 1,500 MG in SODIUM CHLORIDE 0.9% 500 ML IV SCH (12:25)
[2020-02-14] MEDS: INSULIN GLARGINE 100 UNIT/ML SUBCUT SCH (20:33)
[2020-02-14] MEDS: ATORVASTATIN 40 MG TABLET PO SCH (20:33)
[2020-02-15] MEDS: INSULIN REGULAR 100 UNIT/ML SUBCUT SCH ×3 (00:26→11:08)
[2020-02-15] MEDS: ALBUTEROL INHALER 18 GM INH SCH ×5 (00:26→15:44)
[2020-02-15 03:50] LABS: ABG Base Excess -2.5 MMOL/L (-2.5-2.5); ABG HCO3 22.3 MMOL/L (20-26); ABG Oxygen Saturation 95.9 % (95-100); ABG PCO2 28.4 MM HG (35-48); ABG PH 7.466 (7.35-7.45); ABG PO2 79.9 MM HG (80-95); ABG TCO2 19.1 MMOL/L (23-27); Allen Test Positive; Pt O2 Delivery Device Ventilator
[2020-02-15] MEDS: LABETALOL 20 MG/4 ML SYRINGE IV PRN (06:08)
[2020-02-15 06:40] LABS: Basophils % 0.3 % (0.0-0.8); Eosinophils # 0.1 10*3/uL (0.0-0.87); Eosinophils % 0.5 % (0.00-10.9); Hematocrit 26.4 VOL% (35.7-47.0); Hemoglobin 8.5 GM/DL (12.0-16.0); Immature Granulocytes % 0.8 %; Immature Granulocytes Absolute 0.13 #; Lymphocytes # 1.9 10*3/uL (1.4-4.0); Lymphocytes % 11.8 % (21.3-54.2); Mean Corpuscular HGB Conc 32.2 GM/DL (32-36); Mean Corpuscular Volume 99.6 FL (87-102); Mean Platelet Volume 11.4 FL (9.6-12.0); Monocytes % 4.8 % (1.7-12.7); Neutrophils % 81.8 % (38.7-73.9); Platelet Count 356 T/CUMM (130-400); Red Blood Count 2.65 MC/CUMM (3.8-5.5); Red Cell Distribution Width 14.8 % (9.3-17.3); White Blood Count 15.7 T/CUMM (4-12)
[2020-02-15 07:11] LABS: Calcium 8.9 MG/DL (8.5-10.1); Osmolality,Calculated 302.8 MOS/KG (273-304)
[2020-02-15] MEDS ORDERED: cloNIDine 0.1 MG TABLET PO PRN (09:07)
[2020-02-15] MEDS: ENOXAPARIN 60 MG/0.6 ML SYRINGE SUBCUT SCH (09:20)
[2020-02-15] MEDS: ZINC GLUCONATE 50 MG TABLET PO SCH (09:21)
[2020-02-15] MEDS: CHOLECALCIFEROL 1,000 UNIT TABLET PO SCH (09:21)
[2020-02-15] MEDS: MULTIVITAMIN (BEROCCA) TABLET PO SCH (09:21)
[2020-02-15] MEDS: CLOPIDOGREL 75 MG TABLET PO SCH (09:22)
[2020-02-15] MEDS: amLODIPine 10 MG TABLET PO SCH (09:22)
[2020-02-15] MEDS: METOPROLOL TARTRATE 25 MG TABLET NG SCH (09:22)
[2020-02-15] MEDS: CARBIDOPA/LEVODOPA 25-100 MG TABLET PER TUBE SCH ×2 (09:23→14:06)
[2020-02-15] MEDS: ASCORBIC ACID 500 MG TABLET PO SCH (09:23)
[2020-02-15] MEDS: FAMOTIDINE 8 MG/ML 50 ML/BOTTLE PO SCH (09:24)
[2020-02-15] MEDS ORDERED: fentaNYL 50 MCG/HR PATCH TRANSDERM SCH (09:30)
[2020-02-15] MEDS: DEXAMETHASONE 4 MG/1 ML VIAL IV SCH (11:07)
[2020-02-15] MEDS ORDERED: VANCOMYCIN INJ 1,500 MG in SODIUM CHLORIDE 0.9% 500 ML IV SCH (12:00)
[2020-02-15] MEDS: DEXMEDETOMIDINE 400 MCG in SODIUM CHLORIDE 0.9% 96 ML IV PRN (16:05)
== END 2020-02-15 16:11 | DRG 207 ==
LOC: EDUNIT# → N.ED 10:37 → N.EDINP 14:53 → SUATTDRO 14:53 → N.2E 16:00 → N.CC 01-31 05:11
PROVIDERS: ADMIT Internal Medicine; ATTEND Internal Medicine

== ENCOUNTER 2020-04-09 20:41 | Observation (INO) ==
[2020-04-09] MEDS ORDERED: NITROGLYCERIN SL 0.4 MG TABLET SL PRN (21:05)
[2020-04-09 21:43] LABS: Basophils # 0.1 10*3/uL (0.0-0.2); Basophils % 0.7 % (0.0-0.8); Eosinophils # 0.3 10*3/uL (0.0-0.87); Eosinophils % 2.8 % (0.00-10.9); Hematocrit 32.3 VOL% (35.7-47.0); Hemoglobin 10.1 GM/DL (12.0-16.0); Immature Granulocytes % 0.4 %; Immature Granulocytes Absolute 0.04 #; Lymphocytes # 2.9 10*3/uL (1.4-4.0); Mean Corpuscular HGB Conc 31.3 GM/DL (32-36); Mean Corpuscular Volume 100.9 FL (87-102); Mean Platelet Volume 10.2 FL (9.6-12.0); Neutrophils % 54.1 % (38.7-73.9); Platelet Count 374 T/CUMM (130-400); Red Cell Distribution Width 14.6 % (9.3-17.3); White Blood Count 9.2 T/CUMM (4-12)
[2020-04-09 21:53] LABS: PT Patient Result 10.3 SECS (9.8-11.9)
[2020-04-09 22:08] LABS: Alanine Aminotransferase < 9 U/L (13-56); Albumin 2.9 G/DL (3.4-5.0); Alkaline Phosphatase 49 U/L (45-117); Aspartate Amino Transferase 18 U/L (0-37); Bilirubin,Total < 0.39 MG/DL (0.2-1.0); Blood Urea Nitrogen 24 MG/DL (7-18); Estimated Glom Filtration Rate 69 ML/MIN; Glucose 84 MG/DL (74-106); Osmolality,Calculated 277.7 MOS/KG (273-304)
[2020-04-09] MEDS ORDERED: MORPHINE 4 MG/1 ML VIAL IV STA (22:31)
[2020-04-10] MEDS ORDERED: hydrALAZINE 20 MG/1 ML VIAL IV PRN (00:09)
[2020-04-10] MEDS ORDERED: MORPHINE 4 MG/1 ML VIAL IV PRN (00:09)
[2020-04-10] MEDS ORDERED: diphenhydrAMINE CAP 25 MG CAPSULE PO PRN (00:09)
[2020-04-10] MEDS ORDERED: DEXTROSE 50% 25 GM/50 ML VIAL IV PRN (00:09)
[2020-04-10] MEDS ORDERED: NICOTINE 21 MG/24 HR PATCH TRANSDERM PRN (00:09)
[2020-04-10] MEDS ORDERED: guaiFENesin/DM ER 600-30 MG TABLET PO PRN (00:09)
[2020-04-10] MEDS ORDERED: ONDANSETRON 4 MG/2 ML VIAL IV PRN (00:09)
[2020-04-10] MEDS ORDERED: GLUCAGON 1 MG VIAL IM PRN (00:09)
[2020-04-10] MEDS ORDERED: cloNIDine 0.1 MG TABLET PEG PRN (00:26)
[2020-04-10] MEDS ORDERED: INSULIN REGULAR 100 UNIT/ML SUBCUT SCH (07:30)
[2020-04-10] MEDS ORDERED: IRON (CARBONYL)/VIT C/B12/FA TABLET PEG SCH (09:00)
[2020-04-10] MEDS ORDERED: FAMOTIDINE 8 MG/ML 50 ML/BOTTLE PEG SCH (09:00)
[2020-04-10] MEDS ORDERED: CHOLECALCIFEROL 1,000 UNIT TABLET PEG SCH (09:00)
[2020-04-10] MEDS ORDERED: METOPROLOL TARTRATE 25 MG TABLET PEG SCH (09:00)
[2020-04-10] MEDS ORDERED: amLODIPine 10 MG TABLET PEG SCH (09:00)
[2020-04-10] MEDS ORDERED: ENOXAPARIN 40 MG/0.4 ML SYRINGE SUBCUT SCH (09:00)
[2020-04-10] MEDS ORDERED: ZINC SULFATE 220 MG CAPSULE PEG SCH (09:00)
[2020-04-10] MEDS ORDERED: CLOPIDOGREL 75 MG TABLET PEG SCH (09:00)
[2020-04-10] MEDS ORDERED: MENTHOL/ZINC OXIDE OINT 71 GM JAR TOP SCH (09:00)
[2020-04-10] MEDS ORDERED: ASCORBIC ACID 500 MG TABLET PEG SCH (09:00)
[2020-04-10] MEDS ORDERED: CARBIDOPA/LEVODOPA 25-100 MG TABLET PEG SCH (09:00)
[2020-04-10] MEDS ORDERED: INFLUENZA VIRUS VACCINE 0.5 ML SYRINGE IM ONE (12:09)
[2020-04-10] MEDS ORDERED: PNEUMOCOCCAL VACCINE (23 VALENT) 0.5 ML VIAL IM ONE (12:11)
[2020-04-10 12:22] VITALS: BP 98/61
[2020-04-10] MEDS ORDERED: ATORVASTATIN 40 MG TABLET PEG SCH (21:00)
[2020-04-10] MEDS ORDERED: INSULIN GLARGINE 100 UNIT/ML SUBCUT SCH (21:00)
[2020-04-14] MEDS ORDERED: CYANOCOBALAMIN 1000 MCG/1 ML VIAL IM SCH (09:00)
== END 2020-04-10 13:00 ==
LOC: EDBD → EDUNIT# → N.ED 20:41 → N.EDINP 20:41 → N.TELEN 04-10 01:08
PROVIDERS: ADMIT Internal Medicine Geriatric Medicine; ATTEND Internal Medicine Geriatric Medicine

== ENCOUNTER 2020-05-12 11:13 | Inpatient (IN) ==
[2020-05-12] MEDS ORDERED: SODIUM CHLORIDE 0.9% 1,000 ML IV STA ×2 (11:44→14:31)
[2020-05-12 13:48] LABS: PT Patient Result 10.8 SECS (9.8-11.9)
[2020-05-12 13:49] LABS: Basophils # 0.1 10*3/uL (0.0-0.2); Basophils % 0.3 % (0.0-0.8); Eosinophils # 0.9 10*3/uL (0.0-0.87); Eosinophils % 6.2 % (0.00-10.9); Hematocrit 29.2 VOL% (35.7-47.0); Hemoglobin 8.7 GM/DL (12.0-16.0); Immature Granulocytes % 0.5 %; Immature Granulocytes Absolute 0.07 #; Lymphocytes # 1.8 10*3/uL (1.4-4.0); Lymphocytes % 12.2 % (21.3-54.2); Mean Corpuscular HGB Conc 29.8 GM/DL (32-36); Mean Corpuscular Volume 105.4 FL (87-102); Mean Platelet Volume 10.6 FL (9.6-12.0); Monocytes % 3.8 % (1.7-12.7); Platelet Count 259 T/CUMM (130-400); Red Blood Count 2.77 MC/CUMM (3.8-5.5); Red Cell Distribution Width 14.1 % (9.3-17.3); White Blood Count 15.1 T/CUMM (4-12)
[2020-05-12 14:09] LABS: Albumin 2.7 G/DL (3.4-5.0); Bilirubin,Total 0.4 MG/DL (0.2-1.0); Calcium 9.3 MG/DL (8.5-10.1); Osmolality,Calculated 294.1 MOS/KG (273-304); Potassium 5.2 MMOL/L (3.5-5.1); Total Protein 6.1 G/DL (6.4-8.3)
[2020-05-12 15:03] LABS: Bilirubin,Urine Negative (Negative); Blood, Urine Small mg/dL (Negative); Glucose,Urine (UA) Negative (Negative); Ketones,Urine 5 mg/dL (Negative); Nitrite,Urine Negative (Negative); Protein,Urine >=500 MG/DL; Urine Appearance CLOUDY (Clear); Urine Color Yellow (Yellow); Urine Urobilinogen < 2.0 EU/DL (0.2-1.0)
[2020-05-12 15:24] LABS: Bacteria,Urine Many /HPF (Few); RBC,Urine 4 /HPF (0-4); Squamous Epithelial Cell,Urine Few /HPF (0-10); WBC,Urine TNTC /HPF (0-6)
[2020-05-12] MEDS ORDERED: GLUCAGON 1 MG VIAL IM PRN (15:54)
[2020-05-12] MEDS ORDERED: ONDANSETRON 4 MG/2 ML VIAL IV PRN (15:54)
[2020-05-12] MEDS ORDERED: DEXTROSE 50% 25 GM/50 ML VIAL IV PRN (15:54)
[2020-05-12] MEDS ORDERED: ALBUTEROL 2.5 MG/3 ML NEB RESP TX PRN (15:56)
[2020-05-12 16:26] LABS: Thyroid Stimulating Hormone 1.64 uIU/ml (0.358-3.74)
[2020-05-12] MEDS: MEROPENEM 500 MG in SODIUM CHLORIDE 0.9% 100 ML IV SCH (18:28)
[2020-05-12] MEDS: LACTATED RINGERS 1,000 ML IV SCH (18:37)
[2020-05-12] MEDS: INSULIN LISPRO 100 UNIT/ML SUBCUT SCH ×2 (18:37→22:14)
[2020-05-12] MEDS: CARBIDOPA/LEVODOPA 25-100 MG TABLET PO SCH ×2 (18:41→22:13)
[2020-05-12] MEDS: DULoxetine 30 MG CAPSULE PO SCH (22:13)
[2020-05-12] MEDS: ATORVASTATIN 40 MG TABLET PO SCH (22:14)
[2020-05-13] MEDS: MEROPENEM 500 MG in SODIUM CHLORIDE 0.9% 100 ML IV SCH ×2 (03:14→17:28)
[2020-05-13] MEDS: ACETAMINOPHEN 325 MG TABLET PO PRN ×2 (03:14→22:08)
[2020-05-13] MEDS: LACTATED RINGERS 1,000 ML IV SCH (03:27)
[2020-05-13 06:09] LABS: Basophils % 0.1 % (0.0-0.8); Eosinophils # 0.9 10*3/uL (0.0-0.87); Eosinophils % 6.5 % (0.00-10.9); Hemoglobin 8.2 GM/DL (12.0-16.0); Immature Granulocytes % 0.6 %; Immature Granulocytes Absolute 0.08 #; Lymphocytes # 1.3 10*3/uL (1.4-4.0); Lymphocytes % 9.2 % (21.3-54.2); Mean Corpuscular HGB Conc 29.3 GM/DL (32-36); Mean Corpuscular Volume 106.9 FL (87-102); Mean Platelet Volume 11.2 FL (9.6-12.0); Monocytes % 5.5 % (1.7-12.7); Neutrophils % 78.1 % (38.7-73.9); Platelet Count 246 T/CUMM (130-400); Red Blood Count 2.62 MC/CUMM (3.8-5.5); Red Cell Distribution Width 14.4 % (9.3-17.3); White Blood Count 14.1 T/CUMM (4-12)
[2020-05-13 06:57] LABS: Calcium 9.7 MG/DL (8.5-10.1); Osmolality,Calculated 295.3 MOS/KG (273-304); Potassium 5.2 MMOL/L (3.5-5.1)
[2020-05-13] MEDS ORDERED: DEXTROSE 5% 1,000 ML IV SCH (08:00)
[2020-05-13] MEDS: INSULIN LISPRO 100 UNIT/ML SUBCUT SCH ×4 (08:34→22:00)
[2020-05-13] MEDS: PANTOPRAZOLE 40 MG TABLET PO SCH (09:40)
[2020-05-13] MEDS: RALOXIFENE 60 MG TABLET PO SCH (09:40)
[2020-05-13] MEDS: CLOPIDOGREL 75 MG TABLET PO SCH (09:40)
[2020-05-13] MEDS: MULTIVITAMIN (CENTRUM) TABLET PO SCH (09:40)
[2020-05-13] MEDS: CARBIDOPA/LEVODOPA 25-100 MG TABLET PO SCH ×4 (09:40→21:58)
[2020-05-13] MEDS: DULoxetine 30 MG CAPSULE PO SCH ×2 (09:41→21:58)
[2020-05-13] MEDS: SODIUM BICARB INJ 50 MEQ in DEXTROSE 5% 1,000 ML IV SCH ×2 (17:28→21:57)
[2020-05-13] MEDS: ATORVASTATIN 40 MG TABLET PO SCH (21:58)
[2020-05-14] MEDS: MEROPENEM 500 MG in SODIUM CHLORIDE 0.9% 100 ML IV SCH ×2 (04:29→17:05)
[2020-05-14 05:57] LABS: Basophils % 0.3 % (0.0-0.8); Eosinophils # 0.9 10*3/uL (0.0-0.87); Eosinophils % 9.7 % (0.00-10.9); Hematocrit 28.3 VOL% (35.7-47.0); Hemoglobin 8.2 GM/DL (12.0-16.0); Immature Granulocytes % 0.3 %; Immature Granulocytes Absolute 0.03 #; Lymphocytes # 1.6 10*3/uL (1.4-4.0); Lymphocytes % 17.7 % (21.3-54.2); Mean Corpuscular Volume 105.2 FL (87-102); Mean Platelet Volume 10.5 FL (9.6-12.0); Monocytes % 6.7 % (1.7-12.7); Neutrophils % 65.3 % (38.7-73.9); Platelet Count 272 T/CUMM (130-400); Red Blood Count 2.69 MC/CUMM (3.8-5.5); Red Cell Distribution Width 14.2 % (9.3-17.3); White Blood Count 9.1 T/CUMM (4-12)
[2020-05-14 06:18] LABS: Calcium 9.8 MG/DL (8.5-10.1); Osmolality,Calculated 283.7 MOS/KG (273-304); Potassium 4.3 MMOL/L (3.5-5.1)
[2020-05-14] MEDS: DULoxetine 30 MG CAPSULE PO SCH ×2 (08:50→20:42)
[2020-05-14] MEDS: CARBIDOPA/LEVODOPA 25-100 MG TABLET PO SCH ×4 (08:50→20:41)
[2020-05-14] MEDS: RALOXIFENE 60 MG TABLET PO SCH (08:51)
[2020-05-14] MEDS: SODIUM BICARB INJ 50 MEQ in DEXTROSE 5% 1,000 ML IV SCH ×2 (08:51→17:10)
[2020-05-14] MEDS: CLOPIDOGREL 75 MG TABLET PO SCH (08:51)
[2020-05-14] MEDS: PANTOPRAZOLE 40 MG TABLET PO SCH (08:51)
[2020-05-14] MEDS: MULTIVITAMIN (CENTRUM) TABLET PO SCH (08:51)
[2020-05-14] MEDS: INSULIN LISPRO 100 UNIT/ML SUBCUT SCH ×4 (08:52→20:42)
[2020-05-14] MEDS: OMEPRAZOLE ODT 20 MG TABLET PEG SCH (12:31)
[2020-05-14] MEDS: ATORVASTATIN 40 MG TABLET PO SCH (20:41)
[2020-05-15] MEDS: SODIUM BICARB INJ 50 MEQ in DEXTROSE 5% 1,000 ML IV SCH ×2 (03:15→14:32)
[2020-05-15] MEDS: MEROPENEM 500 MG in SODIUM CHLORIDE 0.9% 100 ML IV SCH ×2 (03:22→16:29)
[2020-05-15 05:23] LABS: Basophils % 0.4 % (0.0-0.8); Eosinophils # 0.9 10*3/uL (0.0-0.87); Eosinophils % 10.4 % (0.00-10.9); Hemoglobin 8.9 GM/DL (12.0-16.0); Immature Granulocytes % 0.4 %; Immature Granulocytes Absolute 0.03 #; Lymphocytes # 1.8 10*3/uL (1.4-4.0); Lymphocytes % 21.6 % (21.3-54.2); Mean Corpuscular HGB Conc 31.8 GM/DL (32-36); Mean Corpuscular Volume 99.3 FL (87-102); Mean Platelet Volume 10.2 FL (9.6-12.0); Monocytes % 8.4 % (1.7-12.7); Neutrophils % 58.8 % (38.7-73.9); Platelet Count 291 T/CUMM (130-400); Red Blood Count 2.82 MC/CUMM (3.8-5.5); Red Cell Distribution Width 13.9 % (9.3-17.3); White Blood Count 8.2 T/CUMM (4-12)
[2020-05-15 05:50] LABS: Calcium 9.9 MG/DL (8.5-10.1); Osmolality,Calculated 284.3 MOS/KG (273-304); Potassium 3.8 MMOL/L (3.5-5.1)
[2020-05-15] MEDS: INSULIN LISPRO 100 UNIT/ML SUBCUT SCH ×4 (08:31→20:32)
[2020-05-15] MEDS: CLOPIDOGREL 75 MG TABLET PO SCH (08:31)
[2020-05-15] MEDS: OMEPRAZOLE ODT 20 MG TABLET PEG SCH (08:31)
[2020-05-15] MEDS: RALOXIFENE 60 MG TABLET PO SCH (08:31)
[2020-05-15] MEDS: MULTIVITAMIN (CENTRUM) TABLET PO SCH (08:31)
[2020-05-15] MEDS: DULoxetine 30 MG CAPSULE PO SCH ×2 (08:31→20:32)
[2020-05-15] MEDS: CARBIDOPA/LEVODOPA 25-100 MG TABLET PO SCH ×4 (10:53→20:32)
[2020-05-15] MEDS: ATORVASTATIN 40 MG TABLET PO SCH (20:32)
[2020-05-16] MEDS: MEROPENEM 500 MG in SODIUM CHLORIDE 0.9% 100 ML IV SCH ×2 (03:05→13:39)
[2020-05-16] MEDS: SODIUM BICARB INJ 50 MEQ in DEXTROSE 5% 1,000 ML IV SCH ×2 (03:09)
[2020-05-16 08:31] LABS: Basophils % 0.2 % (0.0-0.8); Eosinophils # 0.5 10*3/uL (0.0-0.87); Eosinophils % 6.7 % (0.00-10.9); Hematocrit 29.9 VOL% (35.7-47.0); Hemoglobin 9.2 GM/DL (12.0-16.0); Immature Granulocytes % 0.4 %; Immature Granulocytes Absolute 0.03 #; Lymphocytes # 2.1 10*3/uL (1.4-4.0); Lymphocytes % 26.3 % (21.3-54.2); Mean Corpuscular HGB Conc 30.8 GM/DL (32-36); Mean Corpuscular Volume 99.7 FL (87-102); Mean Platelet Volume 9.8 FL (9.6-12.0); Monocytes % 9.9 % (1.7-12.7); Neutrophils % 56.5 % (38.7-73.9); Platelet Count 327 T/CUMM (130-400); Red Cell Distribution Width 14.1 % (9.3-17.3); White Blood Count 8.1 T/CUMM (4-12)
[2020-05-16 08:49] LABS: Calcium 9.5 MG/DL (8.5-10.1); Potassium 3.1 MMOL/L (3.5-5.1)
[2020-05-16] MEDS: CARBIDOPA/LEVODOPA 25-100 MG TABLET PO SCH ×4 (09:37→22:48)
[2020-05-16] MEDS: OMEPRAZOLE ODT 20 MG TABLET PEG SCH (09:37)
[2020-05-16] MEDS: RALOXIFENE 60 MG TABLET PO SCH (09:37)
[2020-05-16] MEDS: CLOPIDOGREL 75 MG TABLET PO SCH (09:38)
[2020-05-16] MEDS: MULTIVITAMIN (CENTRUM) TABLET PO SCH (09:38)
[2020-05-16] MEDS: DULoxetine 30 MG CAPSULE PO SCH ×2 (09:38→22:47)
[2020-05-16] MEDS: INSULIN LISPRO 100 UNIT/ML SUBCUT SCH ×4 (09:39→23:14)
[2020-05-16] MEDS ORDERED: MAGNESIUM SULF RIDER 2 GM in PREMIX 1 EACH IV ONE (13:00)
[2020-05-16] MEDS ORDERED: TUBERCULIN SKIN TEST 0.1 ML SYRINGE INTRADERM ONE (16:09)
[2020-05-16] MEDS: METOPROLOL TARTRATE 25 MG TABLET PO SCH (22:44)
[2020-05-16] MEDS: ATORVASTATIN 40 MG TABLET PO SCH (22:48)
[2020-05-17 05:31] LABS: Basophils % 0.3 % (0.0-0.8); Eosinophils # 0.5 10*3/uL (0.0-0.87); Eosinophils % 5.2 % (0.00-10.9); Hematocrit 30.1 VOL% (35.7-47.0); Hemoglobin 9.6 GM/DL (12.0-16.0); Immature Granulocytes % 0.2 %; Immature Granulocytes Absolute 0.02 #; Lymphocytes # 2.5 10*3/uL (1.4-4.0); Lymphocytes % 27.4 % (21.3-54.2); Mean Corpuscular HGB Conc 31.9 GM/DL (32-36); Mean Corpuscular Volume 96.5 FL (87-102); Mean Platelet Volume 9.9 FL (9.6-12.0); Monocytes % 10.3 % (1.7-12.7); Neutrophils % 56.6 % (38.7-73.9); Platelet Count 314 T/CUMM (130-400); Red Blood Count 3.12 MC/CUMM (3.8-5.5); Red Cell Distribution Width 13.8 % (9.3-17.3); White Blood Count 9.3 T/CUMM (4-12)
[2020-05-17] MEDS: POTASSIUM CHLORIDE 20 MEQ/15 ML UDCUP PER TUBE PRN ×2 (05:54→10:51)
[2020-05-17 06:14] LABS: Calcium 9.5 MG/DL (8.5-10.1); Osmolality,Calculated 276.5 MOS/KG (273-304); Potassium 3.5 MMOL/L (3.5-5.1)
[2020-05-17] MEDS: MEROPENEM 500 MG in SODIUM CHLORIDE 0.9% 100 ML IV SCH ×3 (08:36→18:17)
[2020-05-17] MEDS: DULoxetine 30 MG CAPSULE PO SCH ×2 (10:47→21:53)
[2020-05-17] MEDS: amLODIPine 2.5 MG TABLET PO SCH (10:47)
[2020-05-17] MEDS: MULTIVITAMIN (CENTRUM) TABLET PO SCH (10:48)
[2020-05-17] MEDS: CARBIDOPA/LEVODOPA 25-100 MG TABLET PO SCH ×4 (10:48→21:53)
[2020-05-17] MEDS: METOPROLOL TARTRATE 25 MG TABLET PO SCH ×2 (10:48→21:53)
[2020-05-17] MEDS: CLOPIDOGREL 75 MG TABLET PO SCH (10:50)
[2020-05-17] MEDS: RALOXIFENE 60 MG TABLET PO SCH (10:50)
[2020-05-17] MEDS: OMEPRAZOLE ODT 20 MG TABLET PEG SCH (10:51)
[2020-05-17] MEDS: INSULIN LISPRO 100 UNIT/ML SUBCUT SCH ×4 (10:52→21:00)
[2020-05-17] MEDS: ATORVASTATIN 40 MG TABLET PO SCH (21:53)
[2020-05-18] MEDS: MEROPENEM 500 MG in SODIUM CHLORIDE 0.9% 100 ML IV SCH ×3 (04:02→22:04)
[2020-05-18 05:41] LABS: Basophils # 0.1 10*3/uL (0.0-0.2); Basophils % 0.5 % (0.0-0.8); Eosinophils # 0.7 10*3/uL (0.0-0.87); Eosinophils % 7.1 % (0.00-10.9); Hematocrit 31.5 VOL% (35.7-47.0); Immature Granulocytes % 0.5 %; Immature Granulocytes Absolute 0.05 #; Lymphocytes # 2.7 10*3/uL (1.4-4.0); Mean Corpuscular HGB Conc 31.7 GM/DL (32-36); Mean Corpuscular Volume 97.2 FL (87-102); Mean Platelet Volume 9.4 FL (9.6-12.0); Monocytes % 9.7 % (1.7-12.7); Neutrophils % 53.2 % (38.7-73.9); Platelet Count 339 T/CUMM (130-400); Red Blood Count 3.24 MC/CUMM (3.8-5.5); Red Cell Distribution Width 13.7 % (9.3-17.3); White Blood Count 9.5 T/CUMM (4-12)
[2020-05-18 06:03] LABS: Calcium 9.5 MG/DL (8.5-10.1); Osmolality,Calculated 273.7 MOS/KG (273-304); Potassium 3.2 MMOL/L (3.5-5.1)
[2020-05-18] MEDS: INSULIN LISPRO 100 UNIT/ML SUBCUT SCH ×3 (09:22→19:04)
[2020-05-18] MEDS: CLOPIDOGREL 75 MG TABLET PO SCH (09:25)
[2020-05-18] MEDS: RALOXIFENE 60 MG TABLET PO SCH (09:25)
[2020-05-18] MEDS: CARBIDOPA/LEVODOPA 25-100 MG TABLET PO SCH ×4 (09:25→22:03)
[2020-05-18] MEDS: amLODIPine 2.5 MG TABLET PO SCH (09:26)
[2020-05-18] MEDS: OMEPRAZOLE ODT 20 MG TABLET PEG SCH (09:26)
[2020-05-18] MEDS: DULoxetine 30 MG CAPSULE PO SCH ×2 (09:26→22:02)
[2020-05-18] MEDS: METOPROLOL TARTRATE 25 MG TABLET PO SCH ×2 (09:27→22:03)
[2020-05-18] MEDS: MULTIVITAMIN (CENTRUM) TABLET PO SCH (09:27)
[2020-05-18] MEDS: POTASSIUM CHLORIDE 20 MEQ/15 ML UDCUP PER TUBE PRN ×4 (12:09→22:02)
[2020-05-18] MEDS: ATORVASTATIN 40 MG TABLET PO SCH (22:03)
[2020-05-19] MEDS: INSULIN LISPRO 100 UNIT/ML SUBCUT SCH ×2 (02:51→08:56)
[2020-05-19 07:19] LABS: Basophils % 0.5 % (0.0-0.8); Eosinophils # 0.5 10*3/uL (0.0-0.87); Eosinophils % 6.3 % (0.00-10.9); Hematocrit 30.8 VOL% (35.7-47.0); Hemoglobin 9.7 GM/DL (12.0-16.0); Immature Granulocytes % 0.2 %; Immature Granulocytes Absolute 0.02 #; Lymphocytes # 2.7 10*3/uL (1.4-4.0); Lymphocytes % 32.7 % (21.3-54.2); Mean Corpuscular HGB Conc 31.5 GM/DL (32-36); Mean Corpuscular Volume 97.2 FL (87-102); Mean Platelet Volume 9.6 FL (9.6-12.0); Monocytes % 9.6 % (1.7-12.7); Neutrophils % 50.7 % (38.7-73.9); Platelet Count 344 T/CUMM (130-400); Red Blood Count 3.17 MC/CUMM (3.8-5.5); Red Cell Distribution Width 13.7 % (9.3-17.3); White Blood Count 8.4 T/CUMM (4-12)
[2020-05-19 07:39] VITALS: BP 126/60
[2020-05-19 08:40] LABS: Calcium 9.4 MG/DL (8.5-10.1); Osmolality,Calculated 278.4 MOS/KG (273-304); Potassium 3.7 MMOL/L (3.5-5.1)
[2020-05-19] MEDS: CARBIDOPA/LEVODOPA 25-100 MG TABLET PO SCH (08:58)
[2020-05-19] MEDS: CLOPIDOGREL 75 MG TABLET PO SCH (08:58)
[2020-05-19] MEDS: amLODIPine 2.5 MG TABLET PO SCH (08:59)
[2020-05-19] MEDS: DULoxetine 30 MG CAPSULE PO SCH (08:59)
[2020-05-19] MEDS: RALOXIFENE 60 MG TABLET PO SCH (09:00)
[2020-05-19] MEDS: OMEPRAZOLE ODT 20 MG TABLET PEG SCH (09:00)
[2020-05-19] MEDS: METOPROLOL TARTRATE 25 MG TABLET PO SCH (09:00)
[2020-05-19] MEDS: MULTIVITAMIN (CENTRUM) TABLET PO SCH (09:00)
== END 2020-05-19 12:30 | disposition home health service (06) | DRG 682 ==
LOC: EDBD → EDUNIT# → N.ED 11:13 → N.3E 14:43 → N.EDINP 15:17 → N.3E 15:38
PROVIDERS: ADMIT Internal Medicine; ATTEND Internal Medicine

== ENCOUNTER 2020-05-26 12:53 | Inpatient (IN) ==
[2020-05-26] MEDS ORDERED: HYDROmorphone 2 MG/1 ML VIAL IV STA (14:03)
[2020-05-26] MEDS ORDERED: oxyCODONE/ACETAMINOPHEN 5-325 MG TABLET PO STA (14:17)
[2020-05-26 14:53] LABS: Basophils # 0.1 10*3/uL (0.0-0.2); Basophils % 0.5 % (0.0-0.8); Eosinophils # 0.3 10*3/uL (0.0-0.87); Eosinophils % 2.5 % (0.00-10.9); Hematocrit 30.3 VOL% (35.7-47.0); Hemoglobin 9.3 GM/DL (12.0-16.0); Immature Granulocytes % 0.6 %; Immature Granulocytes Absolute 0.07 #; Lymphocytes # 2.5 10*3/uL (1.4-4.0); Lymphocytes % 21.3 % (21.3-54.2); Mean Corpuscular HGB Conc 30.7 GM/DL (32-36); Mean Platelet Volume 10.6 FL (9.6-12.0); Monocytes % 7.8 % (1.7-12.7); Neutrophils % 67.3 % (38.7-73.9); Platelet Count 346 T/CUMM (130-400); Red Blood Count 3.03 MC/CUMM (3.8-5.5); Red Cell Distribution Width 13.6 % (9.3-17.3); White Blood Count 11.8 T/CUMM (4-12)
[2020-05-26 15:09] LABS: Albumin 2.9 G/DL (3.4-5.0); Bilirubin,Total 0.5 MG/DL (0.2-1.0); Calcium 9.2 MG/DL (8.5-10.1); Osmolality,Calculated 280.5 MOS/KG (273-304); Potassium 4.3 MMOL/L (3.5-5.1); Total Protein 6.8 G/DL (6.4-8.3)
[2020-05-26 15:24] LABS: PT Patient Result 10.9 SECS (9.8-11.9)
[2020-05-26 15:26] LABS: Partial Thromboplastin Time < 20.0 SECS (23.9-33.8)
[2020-05-26] MEDS ORDERED: GLUCAGON 1 MG VIAL IM PRN (15:42)
[2020-05-26] MEDS ORDERED: ONDANSETRON 4 MG/2 ML VIAL IV PRN (15:42)
[2020-05-26] MEDS ORDERED: DEXTROSE 50% 25 GM/50 ML VIAL IV PRN (15:42)
[2020-05-26] MEDS ORDERED: MAGNESIUM SULF RIDER 4 GM in PREMIX 1 EACH IV PRN (15:51)
[2020-05-26] MEDS: MAGNESIUM SULF RIDER 2 GM in PREMIX 1 EACH IV PRN (17:50)
[2020-05-26] MEDS: SODIUM CHLORIDE 0.9% 1,000 ML IV SCH (17:50)
[2020-05-27] MEDS: MORPHINE 4 MG/1 ML VIAL IV PRN ×2 (02:20→20:57)
[2020-05-27 05:42] LABS: Basophils # 0.1 10*3/uL (0.0-0.2); Basophils % 0.9 % (0.0-0.8); Eosinophils # 0.6 10*3/uL (0.0-0.87); Eosinophils % 5.9 % (0.00-10.9); Hematocrit 27.2 VOL% (35.7-47.0); Hemoglobin 8.5 GM/DL (12.0-16.0); Immature Granulocytes % 0.2 %; Immature Granulocytes Absolute 0.02 #; Lymphocytes # 2.4 10*3/uL (1.4-4.0); Lymphocytes % 26.1 % (21.3-54.2); Mean Corpuscular HGB Conc 31.3 GM/DL (32-36); Mean Corpuscular Volume 97.1 FL (87-102); Mean Platelet Volume 10.2 FL (9.6-12.0); Monocytes % 6.4 % (1.7-12.7); Neutrophils % 60.5 % (38.7-73.9); Platelet Count 308 T/CUMM (130-400); Red Cell Distribution Width 13.6 % (9.3-17.3); White Blood Count 9.3 T/CUMM (4-12)
[2020-05-27 05:59] LABS: Calcium 9.1 MG/DL (8.5-10.1); Osmolality,Calculated 281.4 MOS/KG (273-304); Potassium 4.3 MMOL/L (3.5-5.1)
[2020-05-27] MEDS: SODIUM CHLORIDE 0.9% 1,000 ML IV SCH ×2 (19:49→20:58)
[2020-05-28] MEDS: MORPHINE 4 MG/1 ML VIAL IV PRN (05:45)
[2020-05-28 05:53] LABS: Basophils % 0.4 % (0.0-0.8); Eosinophils # 0.4 10*3/uL (0.0-0.87); Eosinophils % 4.6 % (0.00-10.9); Hematocrit 25.7 VOL% (35.7-47.0); Immature Granulocytes % 0.4 %; Immature Granulocytes Absolute 0.04 #; Lymphocytes # 2.7 10*3/uL (1.4-4.0); Lymphocytes % 29.2 % (21.3-54.2); Mean Corpuscular HGB Conc 31.1 GM/DL (32-36); Mean Corpuscular Volume 98.8 FL (87-102); Mean Platelet Volume 10.7 FL (9.6-12.0); Monocytes % 9.6 % (1.7-12.7); Neutrophils % 55.8 % (38.7-73.9); Platelet Count 323 T/CUMM (130-400); Red Cell Distribution Width 13.9 % (9.3-17.3); White Blood Count 9.3 T/CUMM (4-12)
[2020-05-28 06:12] LABS: Osmolality,Calculated 282.1 MOS/KG (273-304); Potassium 3.8 MMOL/L (3.5-5.1)
[2020-05-28] MEDS ORDERED: FUROSEMIDE 20 MG/2 ML VIAL IV PRN (07:04)
[2020-05-28] MEDS ORDERED: SODIUM CHLORIDE 0.9% 1,000 ML IV PRN (07:04)
[2020-05-28] MEDS ORDERED: CLINDAMYCIN INJ 900 MG in PREMIX 1 EACH IV ONE (07:06)
[2020-05-28] MEDS ORDERED: BACITRACIN OINT 0.9 GM PACK TOP ONE (10:34)
[2020-05-28] MEDS ORDERED: ETOMIDATE 40 MG/20 ML VIAL IV ONE (11:13)
[2020-05-28] MEDS ORDERED: fentaNYL 100 MCG/2 ML VIAL ONE (11:13)
[2020-05-28] MEDS ORDERED: LIDOCAINE 2% 5 ML VIAL ONE ×2 (11:13→12:09)
[2020-05-28] MEDS ORDERED: ROCURONIUM 50 MG/5 ML VIAL IV ONE (11:21)
[2020-05-28] MEDS ORDERED: ALBUTEROL 2.5 MG/3 ML NEB RESP TX PRN (11:37)
[2020-05-28] MEDS ORDERED: DEXMEDETOMIDINE 200 MCG/2 ML VIAL ONE (11:44)
[2020-05-28] MEDS ORDERED: KETAMINE 500 MG/10 ML VIAL ONE (11:50)
[2020-05-28] MEDS ORDERED: MIDAZOLAM 2 MG/2 ML VIAL ONE ×2 (11:51→12:26)
[2020-05-28] MEDS ORDERED: PHENYLEPHRINE 1 MG/10 ML SYRINGE IV ONE (12:18)
[2020-05-28] MEDS ORDERED: propofoL 200 MG/20 ML VIAL IV ONE (12:28)
[2020-05-28] MEDS ORDERED: SODIUM CHLORIDE 0.9% 1,000 ML IV ONE (12:43)
[2020-05-28] MEDS ORDERED: TUBERCULIN SKIN TEST 0.1 ML SYRINGE INTRADERM ONE (13:00)
[2020-05-28] MEDS ORDERED: FUROSEMIDE 20 MG/2 ML VIAL ONE ×2 (13:08→13:23)
[2020-05-28] MEDS ORDERED: MAGNESIUM HYDROXIDE SUSP 30 ML UDCUP PO PRN (13:13)
[2020-05-28] MEDS ORDERED: oxyCODONE/ACETAMINOPHEN 5-325 MG TABLET PO PRN (13:13)
[2020-05-28] MEDS ORDERED: MORPHINE 4 MG/1 ML VIAL IV PRN (13:13)
[2020-05-28] MEDS ORDERED: ROPIVACAINE 0.5% 30 ML VIAL ONE (13:44)
[2020-05-28] MEDS ORDERED: DEXAMETHASONE 4 MG/1 ML VIAL ONE (13:44)
[2020-05-28 13:55] LABS: % Iron Saturation 12.3 % (18-50); Ferritin 111.3 ng/ml (8-252)
[2020-05-28 14:04] LABS: Amorphous Crystals,Urine Occasional /HPF (Few); Bacteria,Urine Many /HPF (Few); Bilirubin,Urine Negative (Negative); Blood, Urine Small mg/dL (Negative); Glucose,Urine (UA) Negative (Negative); Ketones,Urine Negative (Negative); Mucus,Urine Many /LPF (Occasional); Nitrite,Urine Negative (Negative); Protein,Urine 100 MG/DL; RBC,Urine 72 /HPF (0-4); Squamous Epithelial Cell,Urine Few /HPF (0-10); Urine Appearance CLOUDY (Clear); Urine Color Yellow (Yellow); Urine Specific Gravity 1.013 (1.001-1.035); Urine Urobilinogen < 2.0 EU/DL (0.2-1.0); WBC,Urine 1460 /HPF (0-6)
[2020-05-28 14:22] LABS: Basophils % 0.3 % (0.0-0.8); Eosinophils # 0.3 10*3/uL (0.0-0.87); Eosinophils % 2.9 % (0.00-10.9); Hematocrit 33.2 VOL% (35.7-47.0); Hemoglobin 10.4 GM/DL (12.0-16.0); Immature Granulocytes Absolute 0.11 #; Lymphocytes % 17.9 % (21.3-54.2); Mean Corpuscular HGB Conc 31.3 GM/DL (32-36); Mean Corpuscular Volume 94.1 FL (87-102); Mean Platelet Volume 10.2 FL (9.6-12.0); Monocytes % 6.4 % (1.7-12.7); Neutrophils % 71.5 % (38.7-73.9); Platelet Count 309 T/CUMM (130-400); Red Blood Count 3.53 MC/CUMM (3.8-5.5); Red Cell Distribution Width 17.6 % (9.3-17.3); White Blood Count 11.3 T/CUMM (4-12)
[2020-05-28 14:55] LABS: Folate > 24.0 NG/ML (5.38-24.0); Vitamin B12 1592 PG/ML (211-911)
[2020-05-28 15:22] LABS: Sedimentation Rate-Westergren 70 MM/HR (0-30)
[2020-05-28] MEDS: CARBIDOPA/LEVODOPA 25-100 MG TABLET PO SCH ×2 (17:26→21:24)
[2020-05-28] MEDS: CLINDAMYCIN INJ 900 MG in PREMIX 1 EACH IV SCH (17:26)
[2020-05-28] MEDS: GABAPENTIN 300 MG CAPSULE PO SCH (21:23)
[2020-05-28] MEDS: DULoxetine 30 MG CAPSULE PO SCH (21:24)
[2020-05-28] MEDS: ASCORBIC ACID 500 MG TABLET PO SCH (21:24)
[2020-05-28] MEDS: DOCUSATE SODIUM 100 MG CAPSULE PO SCH (21:25)
[2020-05-28] MEDS: METOPROLOL TARTRATE 25 MG TABLET PO SCH (21:25)
[2020-05-28] MEDS: ATORVASTATIN 40 MG TABLET PO SCH (21:25)
[2020-05-29] MEDS: CLINDAMYCIN INJ 900 MG in PREMIX 1 EACH IV SCH (01:02)
[2020-05-29] MEDS: SODIUM CHLORIDE 0.9% 1,000 ML IV SCH (01:03)
[2020-05-29] MEDS: MORPHINE 4 MG/1 ML VIAL IV PRN ×3 (01:25→21:29)
[2020-05-29 05:34] LABS: Basophils % 0.2 % (0.0-0.8); Hemoglobin 9.1 GM/DL (12.0-16.0); Immature Granulocytes % 0.4 %; Immature Granulocytes Absolute 0.04 #; Lymphocytes # 1.3 10*3/uL (1.4-4.0); Lymphocytes % 12.7 % (21.3-54.2); Mean Corpuscular HGB Conc 31.4 GM/DL (32-36); Mean Corpuscular Volume 90.9 FL (87-102); Mean Platelet Volume 10.8 FL (9.6-12.0); Monocytes % 7.6 % (1.7-12.7); Neutrophils % 79.1 % (38.7-73.9); Platelet Count 303 T/CUMM (130-400); Red Blood Count 3.19 MC/CUMM (3.8-5.5); Red Cell Distribution Width 17.3 % (9.3-17.3); White Blood Count 9.9 T/CUMM (4-12)
[2020-05-29 05:52] LABS: Calcium 8.6 MG/DL (8.5-10.1); Osmolality,Calculated 282.3 MOS/KG (273-304); Potassium 3.9 MMOL/L (3.5-5.1)
[2020-05-29] MEDS: CARBIDOPA/LEVODOPA 25-100 MG TABLET PO SCH ×4 (09:22→21:23)
[2020-05-29] MEDS: ZINC GLUCONATE 50 MG TABLET PO SCH (09:23)
[2020-05-29] MEDS: DULoxetine 30 MG CAPSULE PO SCH ×2 (09:24→21:23)
[2020-05-29] MEDS: RALOXIFENE 60 MG TABLET PO SCH (09:25)
[2020-05-29] MEDS: MULTIVITAMIN (CENTRUM) TABLET PO SCH (09:25)
[2020-05-29] MEDS: DOCUSATE SODIUM 100 MG CAPSULE PO SCH ×2 (09:25→21:22)
[2020-05-29] MEDS: amLODIPine 2.5 MG TABLET PO SCH (09:25)
[2020-05-29] MEDS: ASCORBIC ACID 500 MG TABLET PO SCH ×2 (09:25→21:25)
[2020-05-29] MEDS: CHOLECALCIFEROL 1,000 UNIT TABLET PO SCH (09:25)
[2020-05-29] MEDS: FONDAPARINUX 2.5 MG/0.5 ML SYRINGE SUBCUT SCH (09:26)
[2020-05-29] MEDS: METOPROLOL TARTRATE 25 MG TABLET PO SCH ×2 (09:26→21:22)
[2020-05-29] MEDS: GABAPENTIN 300 MG CAPSULE PO SCH ×2 (09:26→21:22)
[2020-05-29] MEDS: oxyCODONE/ACETAMINOPHEN 5-325 MG TABLET PO PRN (15:00)
[2020-05-29] MEDS: FERROUS SULFATE 325 MG TABLET PO SCH (17:29)
[2020-05-29] MEDS: ATORVASTATIN 40 MG TABLET PO SCH (21:23)
[2020-05-29] MEDS: FOLIC ACID 0.4 MG TABLET PO SCH (21:23)
[2020-05-30] MEDS: MORPHINE 4 MG/1 ML VIAL IV PRN (01:42)
[2020-05-30] MEDS: oxyCODONE/ACETAMINOPHEN 5-325 MG TABLET PO PRN ×2 (03:06→23:36)
[2020-05-30] MEDS: SODIUM CHLORIDE 0.9% 1,000 ML IV SCH ×4 (05:08→17:59)
[2020-05-30 06:35] LABS: Basophils # 0.1 10*3/uL (0.0-0.2); Basophils % 0.6 % (0.0-0.8); Eosinophils # 0.5 10*3/uL (0.0-0.87); Hematocrit 26.1 VOL% (35.7-47.0); Hemoglobin 8.3 GM/DL (12.0-16.0); Immature Granulocytes % 0.4 %; Immature Granulocytes Absolute 0.04 #; Lymphocytes # 2.4 10*3/uL (1.4-4.0); Lymphocytes % 23.1 % (21.3-54.2); Mean Corpuscular HGB Conc 31.8 GM/DL (32-36); Mean Corpuscular Volume 91.6 FL (87-102); Mean Platelet Volume 10.8 FL (9.6-12.0); Monocytes % 9.9 % (1.7-12.7); Platelet Count 280 T/CUMM (130-400); Red Blood Count 2.85 MC/CUMM (3.8-5.5); Red Cell Distribution Width 16.8 % (9.3-17.3); White Blood Count 10.3 T/CUMM (4-12)
[2020-05-30 08:18] LABS: Hemoglobin A1 (Alkaline) 97.4 % (96.5-98.5); Hemoglobin A2 (Alkaline) 2.6 % (1.5-3.5)
[2020-05-30] MEDS: FONDAPARINUX 2.5 MG/0.5 ML SYRINGE SUBCUT SCH (08:30)
[2020-05-30] MEDS: amLODIPine 2.5 MG TABLET PO SCH (08:31)
[2020-05-30] MEDS: ASCORBIC ACID 500 MG TABLET PO SCH ×2 (08:31→21:18)
[2020-05-30] MEDS: GABAPENTIN 300 MG CAPSULE PO SCH ×2 (08:31→21:17)
[2020-05-30] MEDS: FOLIC ACID 0.4 MG TABLET PO SCH ×2 (08:32→21:18)
[2020-05-30] MEDS: ZINC GLUCONATE 50 MG TABLET PO SCH (08:32)
[2020-05-30] MEDS: RALOXIFENE 60 MG TABLET PO SCH (08:33)
[2020-05-30] MEDS: CARBIDOPA/LEVODOPA 25-100 MG TABLET PO SCH ×4 (08:33→21:18)
[2020-05-30] MEDS: DULoxetine 30 MG CAPSULE PO SCH ×2 (08:34→21:17)
[2020-05-30] MEDS: FERROUS SULFATE 325 MG TABLET PO SCH ×2 (08:34→18:54)
[2020-05-30] MEDS: MULTIVITAMIN (CENTRUM) TABLET PO SCH (08:34)
[2020-05-30] MEDS: METOPROLOL TARTRATE 25 MG TABLET PO SCH ×2 (08:34→21:18)
[2020-05-30] MEDS: CHOLECALCIFEROL 1,000 UNIT TABLET PO SCH (08:34)
[2020-05-30] MEDS: DOCUSATE SODIUM 100 MG CAPSULE PO SCH ×2 (08:34→21:18)
[2020-05-30] MEDS: ATORVASTATIN 40 MG TABLET PO SCH (21:17)
[2020-05-31 05:36] LABS: Basophils # 0.1 10*3/uL (0.0-0.2); Basophils % 0.5 % (0.0-0.8); Eosinophils # 0.9 10*3/uL (0.0-0.87); Eosinophils % 9.1 % (0.00-10.9); Hematocrit 26.9 VOL% (35.7-47.0); Hemoglobin 8.5 GM/DL (12.0-16.0); Immature Granulocytes % 0.3 %; Immature Granulocytes Absolute 0.03 #; Lymphocytes # 2.7 10*3/uL (1.4-4.0); Lymphocytes % 28.3 % (21.3-54.2); Mean Corpuscular HGB Conc 31.6 GM/DL (32-36); Mean Corpuscular Volume 92.1 FL (87-102); Mean Platelet Volume 10.5 FL (9.6-12.0); Monocytes % 7.3 % (1.7-12.7); Neutrophils % 54.5 % (38.7-73.9); Platelet Count 330 T/CUMM (130-400); Red Blood Count 2.92 MC/CUMM (3.8-5.5); Red Cell Distribution Width 15.9 % (9.3-17.3); White Blood Count 9.4 T/CUMM (4-12)
[2020-05-31 06:09] LABS: Calcium 8.7 MG/DL (8.5-10.1); Osmolality,Calculated 278.3 MOS/KG (273-304); Potassium 3.5 MMOL/L (3.5-5.1)
[2020-05-31] MEDS: MAGNESIUM SULF RIDER 2 GM in PREMIX 1 EACH IV PRN (06:31)
[2020-05-31] MEDS: CARBIDOPA/LEVODOPA 25-100 MG TABLET PO SCH ×4 (10:16→20:41)
[2020-05-31] MEDS: amLODIPine 2.5 MG TABLET PO SCH (10:17)
[2020-05-31] MEDS: FOLIC ACID 0.4 MG TABLET PO SCH ×2 (10:17→20:41)
[2020-05-31] MEDS: DULoxetine 30 MG CAPSULE PO SCH ×2 (10:17→20:40)
[2020-05-31] MEDS: DOCUSATE SODIUM 100 MG CAPSULE PO SCH ×2 (10:17→20:41)
[2020-05-31] MEDS: RALOXIFENE 60 MG TABLET PO SCH (10:17)
[2020-05-31] MEDS: MULTIVITAMIN (CENTRUM) TABLET PO SCH (10:17)
[2020-05-31] MEDS: CHOLECALCIFEROL 1,000 UNIT TABLET PO SCH (10:17)
[2020-05-31] MEDS: FERROUS SULFATE 325 MG TABLET PO SCH ×2 (10:18→17:44)
[2020-05-31] MEDS: GABAPENTIN 300 MG CAPSULE PO SCH ×2 (10:18→20:40)
[2020-05-31] MEDS: ASCORBIC ACID 500 MG TABLET PO SCH ×2 (10:18→20:40)
[2020-05-31] MEDS: METOPROLOL TARTRATE 25 MG TABLET PO SCH ×2 (10:18→20:41)
[2020-05-31] MEDS: FONDAPARINUX 2.5 MG/0.5 ML SYRINGE SUBCUT SCH (10:18)
[2020-05-31] MEDS: SODIUM CHLORIDE 0.9% 1,000 ML IV SCH ×2 (10:19→19:14)
[2020-05-31] MEDS: ZINC GLUCONATE 50 MG TABLET PO SCH (10:20)
[2020-05-31] MEDS: ATORVASTATIN 40 MG TABLET PO SCH (20:42)
[2020-05-31] MEDS: oxyCODONE/ACETAMINOPHEN 5-325 MG TABLET PO PRN (22:44)
[2020-06-01 07:21] VITALS: BP 122/47
[2020-06-01] MEDS: ZINC GLUCONATE 50 MG TABLET PO SCH (08:39)
[2020-06-01] MEDS: MULTIVITAMIN (CENTRUM) TABLET PO SCH (08:39)
[2020-06-01] MEDS: CHOLECALCIFEROL 1,000 UNIT TABLET PO SCH (08:41)
[2020-06-01] MEDS: RALOXIFENE 60 MG TABLET PO SCH (08:41)
[2020-06-01] MEDS: FOLIC ACID 0.4 MG TABLET PO SCH (08:41)
[2020-06-01] MEDS: GABAPENTIN 300 MG CAPSULE PO SCH (08:42)
[2020-06-01] MEDS: ASCORBIC ACID 500 MG TABLET PO SCH (08:42)
[2020-06-01] MEDS: amLODIPine 2.5 MG TABLET PO SCH (08:42)
[2020-06-01] MEDS: CARBIDOPA/LEVODOPA 25-100 MG TABLET PO SCH (08:43)
[2020-06-01] MEDS: DULoxetine 30 MG CAPSULE PO SCH (08:43)
[2020-06-01] MEDS: DOCUSATE SODIUM 100 MG CAPSULE PO SCH (08:43)
[2020-06-01] MEDS: FERROUS SULFATE 325 MG TABLET PO SCH (08:43)
[2020-06-01] MEDS: METOPROLOL TARTRATE 25 MG TABLET PO SCH (08:44)
[2020-06-01] MEDS: FONDAPARINUX 2.5 MG/0.5 ML SYRINGE SUBCUT SCH (08:44)
[2020-06-01] MEDS: SODIUM CHLORIDE 0.9% 1,000 ML IV SCH (09:45)
== END 2020-06-01 09:00 | DRG 481 ==
LOC: N.ED 12:53 → SUATTDRO 15:43 → N.EDINP 15:43
PROVIDERS: ADMIT Internal Medicine Geriatric Medicine; ATTEND Internal Medicine

== ENCOUNTER 2020-06-19 09:48 | Inpatient (IN) ==
[2020-06-19] MEDS ORDERED: SODIUM CHLORIDE 0.9% 500 ML IV STA (10:26)
[2020-06-19 10:56] LABS: Albumin 2.8 G/DL (3.4-5.0); Basophils # 0.1 10*3/uL (0.0-0.2); Basophils % 0.6 % (0.0-0.8); Bilirubin,Total 0.5 MG/DL (0.2-1.0); Calcium 9.5 MG/DL (8.5-10.1); Eosinophils # 0.3 10*3/uL (0.0-0.87); Eosinophils % 2.9 % (0.00-10.9); Hematocrit 34.8 VOL% (35.7-47.0); Hemoglobin 10.9 GM/DL (12.0-16.0); Immature Granulocytes % 0.4 %; Immature Granulocytes Absolute 0.04 #; Lymphocytes # 2.9 10*3/uL (1.4-4.0); Lymphocytes % 26.5 % (21.3-54.2); Mean Corpuscular HGB Conc 31.3 GM/DL (32-36); Mean Corpuscular Volume 94.3 FL (87-102); Mean Platelet Volume 10.5 FL (9.6-12.0); Monocytes % 5.5 % (1.7-12.7); Neutrophils % 64.1 % (38.7-73.9); Osmolality,Calculated 281.4 MOS/KG (273-304); Platelet Count 426 T/CUMM (130-400); Potassium 3.6 MMOL/L (3.5-5.1); Red Blood Count 3.69 MC/CUMM (3.8-5.5); Red Cell Distribution Width 16.6 % (9.3-17.3); Total Protein 7.4 G/DL (6.4-8.3); White Blood Count 10.8 T/CUMM (4-12)
[2020-06-19 11:10] LABS: Bilirubin,Urine Negative (Negative); Blood, Urine Moderate mg/dL (Negative); Glucose,Urine (UA) Negative (Negative); Ketones,Urine 5 mg/dL (Negative); Nitrite,Urine Negative (Negative); Protein,Urine 100 MG/DL; RBC,Urine 71 /HPF (0-4); Urine Appearance CLOUDY (Clear); Urine Color Yellow (Yellow); Urine Specific Gravity 1.014 (1.001-1.035); Urine Urobilinogen < 2.0 EU/DL (0.2-1.0); WBC,Urine 1495 /HPF (0-6)
[2020-06-19] MEDS ORDERED: ACETAMINOPHEN 325 MG TABLET PO PRN (12:44)
[2020-06-19] MEDS ORDERED: ONDANSETRON 4 MG/2 ML VIAL IV PRN (12:44)
[2020-06-19] MEDS ORDERED: DEXTROSE 50% 25 GM/50 ML VIAL IV PRN (12:44)
[2020-06-19] MEDS ORDERED: GLUCAGON 1 MG VIAL IM PRN (12:44)
[2020-06-19] MEDS: SODIUM CHLORIDE 0.45% 1,000 ML IV SCH ×2 (13:04→20:39)
[2020-06-19] MEDS: AZTREONAM 1,000 MG in SYRINGE 1 EACH IV SCH (13:32)
[2020-06-20] MEDS: AZTREONAM 1,000 MG in SYRINGE 1 EACH IV SCH ×2 (01:44→13:03)
[2020-06-20] MEDS: SODIUM CHLORIDE 0.45% 1,000 ML IV SCH ×3 (04:56→22:10)
[2020-06-20 05:47] LABS: Basophils % 0.5 % (0.0-0.8); Eosinophils # 0.3 10*3/uL (0.0-0.87); Hematocrit 32.3 VOL% (35.7-47.0); Hemoglobin 9.7 GM/DL (12.0-16.0); Immature Granulocytes % 0.2 %; Immature Granulocytes Absolute 0.02 #; Lymphocytes # 2.8 10*3/uL (1.4-4.0); Lymphocytes % 34.5 % (21.3-54.2); Mean Corpuscular Volume 95.6 FL (87-102); Mean Platelet Volume 10.1 FL (9.6-12.0); Monocytes % 7.2 % (1.7-12.7); Neutrophils % 54.6 % (38.7-73.9); Platelet Count 362 T/CUMM (130-400); Red Blood Count 3.38 MC/CUMM (3.8-5.5); Red Cell Distribution Width 16.7 % (9.3-17.3); White Blood Count 8.2 T/CUMM (4-12)
[2020-06-20 06:12] LABS: Calcium 9.2 MG/DL (8.5-10.1); Osmolality,Calculated 283.1 MOS/KG (273-304); Potassium 3.6 MMOL/L (3.5-5.1)
[2020-06-20] MEDS ORDERED: ALBUTEROL 2.5 MG/3 ML NEB RESP TX PRN (16:43)
[2020-06-20] MEDS: FERROUS SULFATE 325 MG TABLET PO SCH (17:56)
[2020-06-20] MEDS: CARBIDOPA/LEVODOPA 25-100 MG TABLET PO SCH ×2 (17:56→21:42)
[2020-06-20] MEDS ORDERED: BETAMETHASONE VALERATE 0.1% CREAM 15 GM TUBE TOP SCH (21:00)
[2020-06-20] MEDS: FOLIC ACID 0.4 MG TABLET PO SCH (21:41)
[2020-06-20] MEDS: DULoxetine 30 MG CAPSULE PO SCH (21:42)
[2020-06-20] MEDS: METOPROLOL TARTRATE 25 MG TABLET PO SCH (21:42)
[2020-06-20] MEDS: ASCORBIC ACID 500 MG TABLET PO SCH (21:43)
[2020-06-20] MEDS: oxyCODONE/ACETAMINOPHEN 5-325 MG TABLET PO PRN (21:43)
[2020-06-20] MEDS: ATORVASTATIN 40 MG TABLET PO SCH (21:43)
[2020-06-21] MEDS: AZTREONAM 1,000 MG in SYRINGE 1 EACH IV SCH ×2 (02:24→13:30)
[2020-06-21 04:58] LABS: Basophils % 0.5 % (0.0-0.8); Eosinophils # 0.3 10*3/uL (0.0-0.87); Eosinophils % 4.5 % (0.00-10.9); Hematocrit 32.5 VOL% (35.7-47.0); Immature Granulocytes % 0.3 %; Immature Granulocytes Absolute 0.02 #; Lymphocytes # 2.5 10*3/uL (1.4-4.0); Lymphocytes % 38.2 % (21.3-54.2); Mean Corpuscular HGB Conc 30.8 GM/DL (32-36); Mean Corpuscular Volume 93.4 FL (87-102); Mean Platelet Volume 10.4 FL (9.6-12.0); Monocytes % 10.5 % (1.7-12.7); Platelet Count 308 T/CUMM (130-400); Red Blood Count 3.48 MC/CUMM (3.8-5.5); Red Cell Distribution Width 16.7 % (9.3-17.3); White Blood Count 6.6 T/CUMM (4-12)
[2020-06-21 05:29] LABS: Calcium 9.2 MG/DL (8.5-10.1); Potassium 3.6 MMOL/L (3.5-5.1)
[2020-06-21] MEDS: MULTIVITAMIN (CENTRUM) TABLET PO SCH (08:32)
[2020-06-21] MEDS: RALOXIFENE 60 MG TABLET PO SCH (08:32)
[2020-06-21] MEDS: FERROUS SULFATE 325 MG TABLET PO SCH ×2 (08:32→16:28)
[2020-06-21] MEDS: amLODIPine 2.5 MG TABLET PO SCH (08:32)
[2020-06-21] MEDS: FOLIC ACID 0.4 MG TABLET PO SCH ×2 (08:32→20:41)
[2020-06-21] MEDS: DULoxetine 30 MG CAPSULE PO SCH ×2 (08:33→20:41)
[2020-06-21] MEDS: ASCORBIC ACID 500 MG TABLET PO SCH ×2 (08:33→20:39)
[2020-06-21] MEDS: CHOLECALCIFEROL 1,000 UNIT TABLET PO SCH (08:33)
[2020-06-21] MEDS: METOPROLOL TARTRATE 25 MG TABLET PO SCH ×2 (08:34→20:43)
[2020-06-21] MEDS: FONDAPARINUX 2.5 MG/0.5 ML SYRINGE SUBCUT SCH (08:35)
[2020-06-21] MEDS: CARBIDOPA/LEVODOPA 25-100 MG TABLET PO SCH ×4 (08:35→20:41)
[2020-06-21] MEDS ORDERED: MIRABEGRON 50 MG PO SCH (09:00)
[2020-06-21] MEDS: GENTAMICIN INJ 310 MG in SODIUM CHLORIDE 0.9% 100 ML IV SCH (13:30)
[2020-06-21] MEDS: SODIUM CHLORIDE 0.45% 1,000 ML IV SCH (16:40)
[2020-06-21] MEDS: oxyCODONE/ACETAMINOPHEN 5-325 MG TABLET PO PRN (20:41)
[2020-06-21] MEDS: ATORVASTATIN 40 MG TABLET PO SCH (20:41)
[2020-06-22] MEDS: AZTREONAM 1,000 MG in SYRINGE 1 EACH IV SCH (00:44)
[2020-06-22 05:28] LABS: Basophils % 0.4 % (0.0-0.8); Eosinophils # 0.3 10*3/uL (0.0-0.87); Eosinophils % 4.8 % (0.00-10.9); Hematocrit 33.3 VOL% (35.7-47.0); Hemoglobin 10.4 GM/DL (12.0-16.0); Immature Granulocytes % 0.3 %; Immature Granulocytes Absolute 0.02 #; Lymphocytes # 2.9 10*3/uL (1.4-4.0); Lymphocytes % 40.1 % (21.3-54.2); Mean Corpuscular HGB Conc 31.2 GM/DL (32-36); Mean Corpuscular Volume 91.7 FL (87-102); Mean Platelet Volume 10.2 FL (9.6-12.0); Monocytes % 10.8 % (1.7-12.7); Neutrophils % 43.6 % (38.7-73.9); Platelet Count 291 T/CUMM (130-400); Red Blood Count 3.63 MC/CUMM (3.8-5.5); Red Cell Distribution Width 16.2 % (9.3-17.3); White Blood Count 7.1 T/CUMM (4-12)
[2020-06-22 05:52] LABS: Calcium 9.3 MG/DL (8.5-10.1); Osmolality,Calculated 270.8 MOS/KG (273-304); Potassium 3.9 MMOL/L (3.5-5.1)
[2020-06-22] MEDS: CARBIDOPA/LEVODOPA 25-100 MG TABLET PO SCH ×2 (09:33→12:39)
[2020-06-22] MEDS: CHOLECALCIFEROL 1,000 UNIT TABLET PO SCH (09:33)
[2020-06-22] MEDS: amLODIPine 2.5 MG TABLET PO SCH (09:33)
[2020-06-22] MEDS: MULTIVITAMIN (CENTRUM) TABLET PO SCH (09:33)
[2020-06-22] MEDS: FERROUS SULFATE 325 MG TABLET PO SCH (09:34)
[2020-06-22] MEDS: RALOXIFENE 60 MG TABLET PO SCH (09:34)
[2020-06-22] MEDS: FOLIC ACID 0.4 MG TABLET PO SCH (09:34)
[2020-06-22] MEDS: FONDAPARINUX 2.5 MG/0.5 ML SYRINGE SUBCUT SCH (09:34)
[2020-06-22] MEDS: ASCORBIC ACID 500 MG TABLET PO SCH (09:34)
[2020-06-22] MEDS: METOPROLOL TARTRATE 25 MG TABLET PO SCH (09:34)
[2020-06-22] MEDS: DULoxetine 30 MG CAPSULE PO SCH (09:34)
[2020-06-22] MEDS: SODIUM CHLORIDE 0.45% 1,000 ML IV SCH (09:35)
[2020-06-22] MEDS: GENTAMICIN INJ 310 MG in SODIUM CHLORIDE 0.9% 100 ML IV SCH (12:40)
[2020-06-22 17:07] VITALS: BP 127/49
== END 2020-06-22 17:09 | DRG 690 ==
LOC: EDBD → EDUNIT# → N.EDINP 09:48 → N.ED 09:48 → N.5E 16:02 → SUATTDRO 06-21 13:03
PROVIDERS: ADMIT Emergency Medicine; ATTEND Internal Medicine